=== PATIENT | female | born 1980 | race Caucasian/White ===

== ENCOUNTER → 2017-04-14 | Outpatient (CLI) | payer BC, SELFPAY | PROVIDERS: Family Provider Physician Assistant; Visit Provider Physician Assistant | DX: J40 Bronchitis, not specified as acute or chronic (principal) | CPT/HCPCS: 71020 ==

== ENCOUNTER → 2019-12-06 15:26 | Outpatient (CLI) | payer BC, SELFPAY ==
[2019-12-06 16:09] LABS: Basophils # 0.1 K/mm3 (0-0.2); Basophils % 0.6 % (0.1-2.0); Eosinophils # 0.2 K/mm3 (0.0-0.4); Eosinophils % 2.1 % (0.1-12.0); Hematocrit 41.7 % (37.0-47.0); Hemoglobin 14.3 g/dL (12.2-16.2); Lymphocytes # 3.3 K/mm3 (0.7-4.5); Lymphocytes % 32.9 % (10-50); Mean Corpuscular HGB Conc 34.2 g/dL (31.8-35.4); Mean Corpuscular Hemoglobin 29.6 pg (27.0-31.2); Mean Corpuscular Volume 86.5 fl (81-99); Mean Platelet Volume 6.7 fl (7.4-10.4); Monocytes # 0.6 K/mm3 (0.1-1.0); Monocytes % 5.7 % (1.7-9.3); Neutrophils # 5.8 K/mm3 (1.8-7.8); Neutrophils % 58.7 % (37.0-80.0); Platelet Count 366 K/mm3 (142-424); Red Blood Count 4.82 M/mm3 (4.20-5.40); Red Cell Distribution Width 13.6 % (11.5-17.5); White Blood Count 9.9 K/mm3 (4.8-10.8)
== END ==
PROVIDERS: PCP Family Medicine; Visit Provider Physician Assistant
DX: Z03.818 Encounter for observation for suspected exposure to other biological agents ruled out (principal)
CPT/HCPCS: 36415; 85025; U0003

== ENCOUNTER → 2020-02-11 10:28 | Outpatient (CLI) | payer BC, SELFPAY ==
[2020-02-11 13:39] LABS: Basophils # 0.1 K/mm3 (0-0.2); Basophils % 0.6 % (0.1-2.0); Eosinophils # 0.1 K/mm3 (0.0-0.4); Eosinophils % 1.2 % (0.1-12.0); Hematocrit 46.2 % (37.0-47.0); Hemoglobin 14.8 g/dL (12.2-16.2); Lymphocytes # 2.2 K/mm3 (0.7-4.5); Lymphocytes % 25.4 % (10-50); Mean Corpuscular HGB Conc 32.1 g/dL (31.8-35.4); Mean Corpuscular Hemoglobin 28.6 pg (27.0-31.2); Mean Corpuscular Volume 89.2 fl (81-99); Mean Platelet Volume 7.5 fl (7.4-10.4); Monocytes # 0.6 K/mm3 (0.1-1.0); Monocytes % 7.4 % (1.7-9.3); Neutrophils # 5.6 K/mm3 (1.8-7.8); Neutrophils % 65.5 % (37.0-80.0); Platelet Count 416 K/mm3 (142-424); Red Blood Count 5.18 M/mm3 (4.20-5.40); Red Cell Distribution Width 13.7 % (11.5-17.5); White Blood Count 8.5 K/mm3 (4.8-10.8)
== END ==
PROVIDERS: PCP Family Medicine; Visit Provider Family Medicine
DX: Z03.818 Encounter for observation for suspected exposure to other biological agents ruled out (principal)
CPT/HCPCS: 36415; 85025; U0003

== ENCOUNTER → 2020-07-16 10:36 | Outpatient (CLI) | payer BC, SELFPAY ==
--- NOTE | 2020-07-16 10:42 | MM_ITS ---
PROCEDURE: MM DIG MAMM BI DX W/CAD Digital Breast Tomosynthesis Included CLINICAL INDICATION: BREAST MASS There is a history of breast cancer patient's mother diagnosed at age 44. The patient complains of a thickness or fullness in upper outer quadrant left breast and axillary region COMPARISON: US US BREAST LT COMPLETE from 07/16/2020 TECHNIQUE: Standard CC and MLO images and 3D Tomosynthesis was obtained. R2 CAD reviewed. Additional spot compression views of the upper-outer quadrant left breast were obtained in the MLO and CC projections. FINDINGS: Mild diffuse fibroglandular densities are seen throughout both breasts. A marker was placed on the left breast at the site of the patient's complaint. Spot compression views were obtained and I see no mass or architectural distortion in the upper outer quadrant left breast. Aj images showed no evidence of architectural distortion or other abnormality. There is a small asymmetric nodular density upper central portion right breast with smooth borders and this is likely a small cyst or possibly fibroadenoma. However since this is a baseline study and in view of the strong family history of breast cancer recommend the patient return for spot compression views and ultrasound for additional evaluation. IMPRESSION: Fibrofatty parenchyma with no abnormality of the left breast at the site of the patient's complaint and with probable benign finding right breast BI-RAD Category: 0 Need Additional Imaging Evaluation FOLLOW-UP: IMM Immediate Follow-up Recommended (A letter has been sent to the patient regarding results of the study.) Dictated by: Dr. Kameron Conley MD 07/17/2020 10:32 Dr. Kameron Conley MD in [place] 07/17/2020 10:32
--- NOTE | 2020-07-16 10:44 | US_ITS ---
PROCEDURE: US BREAST LT COMPLETE CLINICAL INDICATION: BREAST MASS COMPARISON: No exams were available for comparison FINDINGS: Scanning of the left breast with particular attention to the upper-outer quadrant shows rather homogeneous and normal appearing echogenicity. There is no abnormal mass or evidence of architectural distortion. There does appear to be enlarged node in the axilla with a hypoechoic center, the node measuring 4.4 cm in greatest long axis diameter. This likely represents an inflammatory process within the node. A 2nd node in the axilla has a normal appearance. IMPRESSION: Probable enlarged somewhat inflamed node left axilla but there is no abnormality of the upper-outer quadrant of the left breast on ultrasound examination and the mammogram performed the same date was unremarkable as well. Dictated by: Dr. Kameron Conley MD 07/17/2020 10:51 Dr. Kameron Conley MD in [place] 07/17/2020 10:51
== END ==
PROVIDERS: PCP Physician Assistant; Visit Provider Physician Assistant
DX: N63.20 Unspecified lump in the left breast, unspecified quadrant (principal)
CPT/HCPCS: 76641; 77062; 77066; G0279

== ENCOUNTER → 2020-09-16 14:31 | Outpatient (CLI) | payer BC, SELFPAY ==
--- NOTE | 2020-09-16 | US_ITS ---
PROCEDURE: MM DIG MAMM DX UNILAT RT CAD Digital Breast Tomosynthesis Included CLINICAL INDICATION: ABN MAMM Follow-up abnormal mammogram COMPARISON: US US BREAST LT COMPLETE from 07/16/2020 MG MM DIG MAMM BI DX W/CAD from 07/16/2020 US US BREAST RT COMPLETE from 09/16/2020 US US BREAST LT COMPLETE from 09/16/2020 TECHNIQUE: Spot-compression views are obtained of the right breast along with right breast ultrasound. FINDINGS: There is a persistent asymmetric density in the upper inner aspect of the right breast at the 1 o'clock region. The margins are somewhat irregular. This measures approximately 12 x 5 mm on the mL view. No internal calcifications. Right breast ultrasound: A hypoechoic nodule well-circumscribed is present in the 1 o'clock region measuring 11 x 4 mm and likely corresponds to the mammographic abnormality. There is some minimal posterior acoustical shadowing and a thin linear hyperechoic area within the lesion. Lesion is wider than tall. This could possibly represent an intramammary lymph node however, the margins are irregular on the mammogram. Biopsy is therefore suggested. Left breast ultrasound: No abnormalities are evident within the breast. Enlarged lymph nodes are present in the axilla. The largest node measures approximately 4.3 cm longitudinal and 1.9 cm in thickness. Within the central aspect of this node there is an oval area of decreased echogenicity. This is consistent with enlarged lymph node which could be inflammatory in nature. The central area of decreased echogenicity does raise the question of a small central abscess. IMPRESSION: Mildly suspicious nodule of the right breast. Recommend ultrasound-guided mammotome biopsy. Left axillary adenopathy with no change in the largest node at 4.3 x 1.9 cm with decreased echogenicity centrally which could be due to small abscess formation or central necrosis. Has the patient had a Covid19 vaccine recently and if so? Which extremity was not given in. The adenopathy could be response to a Covid19 vaccination. Continued follow-up is suggested. If the adenopathy does not resolve then FNA could be performed with ultrasound guidance BI-RAD Category: 4 Suspicious Abnormality-Biopsy Considered right breast FOLLOW-UP: BIO Biopsy Recommended right breast (A letter has been sent to the patient regarding results of the study.) Dictated by: Wilton Plata MD 09/25/2020 10:31 Wilton Plata MD in [place] 09/25/2020 10:31
== END ==
LOC: RAD 14:33
PROVIDERS: PCP Physician Assistant; Visit Provider Physician Assistant
DX: R92.8 Other abnormal and inconclusive findings on diagnostic imaging of breast (principal)
CPT/HCPCS: 76641; 77061; 77065; G0279

== ENCOUNTER → 2020-10-15 09:24 | Outpatient (CLI) | payer BC, SELFPAY ==
--- NOTE | 2020-10-15 09:31 | US_ITS ---
PROCEDURE: US MAMMOTOME BX RT CLIP PLACEMENT MAMMOGRAM CLINICAL INDICATION: ABN MAMM Right breast mass COMPARISON: MG MM DIG MAMM BI DX W/CAD from 07/16/2020 US US BREAST RT COMPLETE from 09/16/2020 MG MM DIG MAMM DX UNILAT RT CAD from 09/16/2020 MG MM CLIP PLACEMENT RT from 10/15/2020 FINDINGS: Following obtaining informed consent and time-out procedure under aseptic conditions and local anesthesia with 1 percent buffered lidocaine, and deeper anesthesia with lidocaine mixed epinephrine, mammotome needle was inserted at the 1 o'clock position and multiple mammotome biopsies were obtained the previously described nodule. A sterile non ferromagnetic clip was placed. The patient tolerated the procedure well without evidence of immediate complications and left radiology suite in stable condition. Clip placement mammogram: Post biopsy changes are noted in the medial aspect of the right breast at the 1 o'clock position. Previously noted nodular lesion is less apparent with a clip present at this area. Pathology: Fibroadenoma, negative for atypia or malignancy. IMPRESSION: Successful sonographic guided biopsy 1 o'clock breast nodule showing benign findings. Recommend six-month mammographic follow-up per routine post biopsy protocol. Dictated by: Wilton Plata MD 10/26/2020 13:21 Wilton Plata MD in [place] 10/26/2020 13:21
--- NOTE | 2020-10-15 10:30 | US_ITS ---
PROCEDURE: US FNA LYMPH NODE CLINICAL INDICATION: ABN MAMM,LT BREAST LYMPH NODE Enlarged left axillary lymph node COMPARISON: US US BREAST LT COMPLETE from 09/16/2020 FINDINGS: Following obtaining informed consent and time-out procedure with ultrasound guidance and under aseptic conditions with local anesthesia with 1 percent buffered lidocaine, a 20 gauge needle was inserted into the enlarged left axillary lymph node x3. The patient tolerated the procedure well without evidence of immediate complication and left radiology suite in stable condition. Specimen was submitted in CytoLyt and RPMI Cytology: Negative for malignant cells IMPRESSION: Uneventful ultrasound-guided FNA left axillary lymph node showing benign findings Dictated by: Wilton Plata MD 10/26/2020 13:26 Wilton Plata MD in [place] 10/26/2020 13:26
[2020-10-15 13:17] LABS: Basophils # 0.1 K/mm3 (0-0.2); Basophils % 0.4 % (0.1-2.0); Eosinophils # 0.2 K/mm3 (0.0-0.4); Eosinophils % 1.4 % (0.1-12.0); Hematocrit 41.9 % (37.0-47.0); Hemoglobin 14.2 g/dL (12.2-16.2); Lymphocytes # 2.7 K/mm3 (0.7-4.5); Lymphocytes % 23.4 % (10-50); Mean Corpuscular Hemoglobin 29.1 pg (27.0-31.2); Mean Corpuscular Volume 85.5 fl (81-99); Monocytes # 0.7 K/mm3 (0.1-1.0); Monocytes % 5.9 % (1.7-9.3); Neutrophils % 68.8 % (37.0-80.0); Platelet Count 447 K/mm3 (142-424); Red Cell Distribution Width 13.4 % (11.5-17.5); White Blood Count 11.7 K/mm3 (4.8-10.8)
[2020-10-15 13:36] LABS: Alanine Aminotransferase 36 U/L (12-78); Albumin Level 4.3 g/dl (3.5-5.0); Albumin/Globulin Ratio 1.5 (1.1-1.8); Alkaline Phosphatase 53 U/L (38-126); Anion Gap 13.3 mEq/L (5-15); Aspartate Amino Transferase 25 U/L (14-36); Bilirubin,Total 0.4 mg/dl (0.2-1.3); Blood Urea Nitrogen 14 mg/dl (7-17); Calcium 8.8 mg/dl (8.4-10.2); Carbon Dioxide 27 mmol/L (22.0-30.0); Chloride 100 mmol/L (98-107); Chol/HDL Ratio 4.4 (1-3.5); Cholesterol 232 mg/dl (140-200); Estimated Glomerular Filt Rate 137 ml/min (>60); GFR (African American) 165 ML/MIN (>60); Globulin 2.9 g/dL (1.3-3.2); Glucose 90 mg/dl (74-100); HDL Cholesterol 53 mg/dl (40-60); Potassium 4.3 mmoL/L (3.5-5.1); Sodium 136 mmol/L (136-145); Total Protein,Serum 7.2 g/dl (6.3-8.2); Triglycerides 71 mg/dl (30-150); VLDL Cholesterol 14 mg/dL (0-40)
[2020-10-15 13:47] LABS: Direct LDL Cholesterol 163.34 mg/dL (100-129)
[2020-10-15 13:53] LABS: 25-OH Vitamin D, Total 19.9 ng/mL (30-100)
[2020-10-15 14:08] LABS: Thyroid Stimulating Hormone 1.15 uIU/mL (0.465-4.68)
[2020-10-15 14:26] LABS: Vitamin B12 553 pg/mL (239-931)
== END ==
LOC: RAD 09:25
PROVIDERS: PCP Physician Assistant; Visit Provider Family Medicine
DX: R92.8 Other abnormal and inconclusive findings on diagnostic imaging of breast (principal); D48.61 Neoplasm of uncertain behavior of right breast; R53.83 Other fatigue; Z13.220 Encounter for screening for lipoid disorders; E55.9 Vitamin D deficiency, unspecified
CPT/HCPCS: 10005; 36415; 77065; 80053; 80061; 82306; 82607; 84439; 84443; 85025; C2618

== ENCOUNTER → 2021-01-25 12:55 | Outpatient (CLI) | payer BC, SELFPAY ==
[2021-01-25 13:52] LABS: Adenovirus,PCR Not Detected (NotDetected); Bordetella Pertussis Not Detected (NotDetected); Chlamydophila Pneumoniae, PCR Not Detected (NotDetected); Coronavirus 19, PCR Not Detected (NotDetected); Coronavirus 229E Not Detected (NotDetected); Coronavirus NL63 Not Detected (NotDetected); Coronavirus OC43 Not Detected (NotDetected); Coronovirus HKU1,PCR Not Detected (NotDetected); Human Metapneumovirus Not Detected (NotDetected); Influenza A, PCR Not Detected (NotDetected); Influenza AH1, 2009 Not Detected (NotDetected); Influenza AH1, PCR Not Detected (NotDetected); Influenza AH3,PCR Not Detected (NotDetected); Influenza B, PCR Not Detected (NotDetected); Mycoplasma Pneumoniae, PCR Not Detected (NotDetected); Parainfluenza 1, PCR Not Detected (NotDetected); Parainfluenza 2, PCR Not Detected (NotDetected); Parainfluenza 3, PCR Not Detected (NotDetected); Parainfluenza 4, PCR Not Detected (NotDetected); Respiratory Syncytial Virus Not Detected (NotDetected); Rhinovirus/Enterovirus Not Detected (NotDetected)
[2021-01-25 14:18] LABS: Basophils # 0.1 K/mm3 (0-0.2); Basophils % 0.9 % (0.1-2.0); Eosinophils # 0.1 K/mm3 (0.0-0.4); Eosinophils % 1.3 % (0.1-12.0); Hemoglobin 14.1 g/dL (12.2-16.2); Lymphocytes # 2.5 K/mm3 (0.7-4.5); Lymphocytes % 27.7 % (10-50); Mean Corpuscular HGB Conc 32.8 g/dL (31.8-35.4); Mean Corpuscular Hemoglobin 28.8 pg (27.0-31.2); Mean Corpuscular Volume 87.9 fl (81-99); Mean Platelet Volume 7.9 fl (7.4-10.4); Monocytes # 0.6 K/mm3 (0.1-1.0); Monocytes % 6.3 % (1.7-9.3); Neutrophils # 5.8 K/mm3 (1.8-7.8); Neutrophils % 63.7 % (37.0-80.0); Platelet Count 476 K/mm3 (142-424); Red Cell Distribution Width 13.7 % (11.5-17.5)
[2021-01-25 15:02] LABS: Strep Scrn Group A (Rapid) Negative (Negative)
== END ==
PROVIDERS: PCP Family Medicine; Visit Provider Nurse Practitioner Family
DX: Z20.822 Contact with and (suspected) exposure to COVID-19 (principal)
CPT/HCPCS: 36415; 85025; 87430; 87581; 87632; 87798; C9803; U0003; U0005

== ENCOUNTER → 2021-03-04 14:52 | Outpatient (CLI) | payer BC, SELFPAY ==
[2021-03-04 15:32] LABS: Adenovirus,PCR Not Detected (NotDetected); Bordetella Pertussis Not Detected (NotDetected); Chlamydophila Pneumoniae, PCR Not Detected (NotDetected); Coronavirus 19, PCR Not Detected (NotDetected); Coronavirus 229E Not Detected (NotDetected); Coronavirus NL63 Not Detected (NotDetected); Coronavirus OC43 Not Detected (NotDetected); Coronovirus HKU1,PCR Not Detected (NotDetected); Human Metapneumovirus Not Detected (NotDetected); Influenza A, PCR Not Detected (NotDetected); Influenza AH1, 2009 Not Detected (NotDetected); Influenza AH1, PCR Not Detected (NotDetected); Influenza AH3,PCR Not Detected (NotDetected); Influenza B, PCR Not Detected (NotDetected); Mycoplasma Pneumoniae, PCR Not Detected (NotDetected); Parainfluenza 1, PCR Not Detected (NotDetected); Parainfluenza 2, PCR Not Detected (NotDetected); Parainfluenza 3, PCR Not Detected (NotDetected); Parainfluenza 4, PCR Not Detected (NotDetected)
[2021-03-04 15:48] LABS: Basophils # 0.1 K/mm3 (0-0.2); Basophils % 1.1 % (0.1-2.0); Eosinophils # 0.1 K/mm3 (0.0-0.4); Eosinophils % 1.3 % (0.1-12.0); Hematocrit 41.8 % (37.0-47.0); Hemoglobin 13.8 g/dL (12.2-16.2); Lymphocytes # 2.5 K/mm3 (0.7-4.5); Lymphocytes % 39.9 % (10-50); Mean Corpuscular HGB Conc 32.9 g/dL (31.8-35.4); Mean Corpuscular Hemoglobin 28.7 pg (27.0-31.2); Mean Platelet Volume 7.5 fl (7.4-10.4); Monocytes # 0.6 K/mm3 (0.1-1.0); Neutrophils % 48.8 % (37.0-80.0); Platelet Count 413 K/mm3 (142-424); Red Cell Distribution Width 13.3 % (11.5-17.5); White Blood Count 6.2 K/mm3 (4.8-10.8)
[2021-03-04 18:26] LABS: Respiratory Syncytial Virus Detected (NotDetected); Rhinovirus/Enterovirus Detected (NotDetected)
== END ==
PROVIDERS: PCP Family Medicine; Visit Provider Physician Assistant
DX: Z20.822 Contact with and (suspected) exposure to COVID-19 (principal); B97.4 Respiratory syncytial virus as the cause of diseases classified elsewhere; B34.1 Enterovirus infection, unspecified
CPT/HCPCS: 36415; 85025; 87581; 87632; 87798; C9803; U0003; U0005

== ENCOUNTER → 2021-08-20 10:16 | Outpatient (CLI) | payer BC, SELFPAY ==
--- NOTE | 2021-08-20 10:25 | XR_ITS ---
FINAL REPORT CLINICAL HISTORY: COVID TESTING. cough, sob x6days. image did not flip correctly. if need to resend image let us know. COMPARISON: April 14, 2017 FINDINGS: SINGLE VIEW CHEST The heart is normal in size. The mediastinum is unremarkable. The lungs are clear. There is no pneumothorax. IMPRESSION: No acute process. Reviewed, Interpreted and Dictated by Neo Blanco MD Transcribed by Neetu Zamarripa Authenticated by Neo Blanco MD on 08/20/2021 11:33:00 AM [facility]
[2021-08-20 11:29] LABS: Basophils # 0.2 K/mm3 (0-0.2); Basophils % 1.3 % (0.1-2.0); Eosinophils % 0.1 % (0.1-12.0); Hematocrit 43.2 % (37.0-47.0); Hemoglobin 14.4 g/dL (12.2-16.2); Lymphocytes # 2.2 K/mm3 (0.7-4.5); Lymphocytes % 14.2 % (10-50); Mean Corpuscular HGB Conc 33.2 g/dL (31.8-35.4); Mean Corpuscular Hemoglobin 29.2 pg (27.0-31.2); Mean Platelet Volume 7.3 fl (7.4-10.4); Monocytes # 1.2 K/mm3 (0.1-1.0); Monocytes % 7.6 % (1.7-9.3); Neutrophils # 11.9 K/mm3 (1.8-7.8); Neutrophils % 76.8 % (37.0-80.0); Platelet Count 508 K/mm3 (142-424); Red Blood Count 4.91 M/mm3 (4.20-5.40); Red Cell Distribution Width 13.8 % (11.5-17.5); White Blood Count 15.5 K/mm3 (4.8-10.8)
[2021-08-20 12:21] LABS: MANUAL DIFFERENTIAL MANUAL DIFFERENTIAL (MANUAL DIFF)
[2021-08-20 16:18] LABS: Lymphocytes % 24 % (10-50); Monocytes % 5 % (2-9); Neutrophils % 71 % (42-76); Platelet Estimate Slight Increase; RBC Morphology Normal; Total Cells Counted 100
== END ==
PROVIDERS: PCP Family Medicine; Visit Provider Physician Assistant
DX: Z20.822 Contact with and (suspected) exposure to COVID-19 (principal)
CPT/HCPCS: 36415; 71045; 85007; 85025; 85378; 87275; 87276; C9803; U0003; U0005

== ENCOUNTER → 2021-08-21 09:53 | Outpatient (CLI) | payer BC, SELFPAY ==
--- NOTE | 2021-08-21 09:57 | XR_ITS ---
PROCEDURE INFORMATION: Exam: XR Soft Tissue Neck Exam date and time: 08/21/2021 9:58 AM Age: 41 years old Clinical indication: Dysphagia / difficulty swallowing and other: Difficult clearing airway; Additional info: Tracheitis- status post covid but still feels difficulty clearing her airway- check for stenosis TECHNIQUE: Imaging protocol: XR of the soft tissues of the neck. COMPARISON: CR XR CHEST AP 08/20/2021 10:40 AM FINDINGS: Airway: Normal. No abnormal narrowing. Soft tissues: Normal. Normal epiglottis. Bones/joints: Unremarkable. IMPRESSION: No acute findings. Recommend CT soft tissue neck with IV contrast if clinically indicated
== END ==
LOC: RAD 09:54
PROVIDERS: PCP Family Medicine; Visit Provider Family Medicine
DX: J04.10 Acute tracheitis without obstruction (principal)
CPT/HCPCS: 70360

== ENCOUNTER → 2021-08-23 10:35 | Outpatient (CLI) | payer BC, SELFPAY ==
--- NOTE | 2021-08-23 10:46 | CT_ITS ---
FINAL REPORT TECHNIQUE: Thin section axial CT images were obtained through the neck after intravenous contrast administration. Coronal and sagittal reformats were also obtained. This study was performed with techniques to keep radiation doses as low as reasonably achievable (ALARA). Individualized dose reduction techniques using automated exposure control or adjustment of mA and/or kV according to the patient''s size were employed. CLINICAL HISTORY: TRACHEITIS, soa FINDINGS: The nasopharynx and oropharynx are unremarkable. There is soft tissue fullness of the left piriform sinus of uncertain significance. There is no mass or adenopathy. The thyroid gland is unremarkable. There is an abnormal appearance to the right true vocal cord worrisome for right true vocal cord paralysis. The visualized sinuses are clear. There is no acute osseous abnormality. IMPRESSION: Soft tissue fullness of the left piriform sinus may represent inflammatory change. Neoplastic involvement is felt less likely but not excluded. Consider laryngoscopy. Abnormal appearance of the right true vocal cord worrisome for right true vocal cord paralysis. Reviewed, Interpreted and Dictated by Kumar Carpio III, MD Transcribed by Adama Zhong Authenticated by Kumar Carpio III, MD on 08/23/2021 11:48:04 AM [facility]
--- NOTE | 2021-08-23 10:46 | CT_ITS ---
FINAL REPORT TECHNIQUE: Then section axial CT images of the chest were obtained with contrast. Three-D reformatted images were also obtained.This study was performed with techniques to keep radiation doses as low as reasonably achievable (ALARA). Individualized dose reduction techniques using automated exposure control or adjustment of mA and/or kV according to the patient''s size were employed. CLINICAL HISTORY: DISCOMFORT OF CHEST,DYSPNEA FINDINGS: There is no evidence of pulmonary embolism. There is no evidence of thoracic aortic aneurysm or dissection. There is no evidence of mediastinal or hilar mass or adenopathy. There is mild bilateral ground-glass opacity of uncertain etiology. No localized inflammatory process is seen within the lungs. Limited images of the upper abdomen are unremarkable. IMPRESSION: 1. No evidence of pulmonary embolism. 2. Mild bilateral ground-glass opacity of uncertain etiology could represent edema, alveolitis, or mild pneumonia. Reviewed, Interpreted and Dictated by Kumar Carpio III, MD Transcribed by Adama Zhong Authenticated by Kumar Carpio III, MD on 08/23/2021 11:48:06 AM [facility]
== END ==
LOC: RAD 10:40
PROVIDERS: PCP Family Medicine; Visit Provider Family Medicine
DX: R06.09 Other forms of dyspnea (principal); R07.89 Other chest pain; J04.10 Acute tracheitis without obstruction
CPT/HCPCS: 70491; 71275; Q9967

== ENCOUNTER → 2021-09-13 08:56 | Outpatient (CLI) | payer BC, SELFPAY ==
--- NOTE | 2021-09-13 08:56 | MR_ITS ---
FINAL REPORT TECHNIQUE: Multiplanar and multisequence imaging of the brain was obtained without contrast. CLINICAL HISTORY: vocal cord paralysis [id number]. headache. FINDINGS: The gyri and sulci are within normal limits for age. There is no mass effect or midline shift. The ventricles are symmetric in size and configuration without hydrocephalus. There are multiple, subcortical predominant, white matter changes, worse in the frontal lobes. The cerebellum and brainstem have a normal appearance. There are no areas of restricted diffusion on diffusion weighted images to suggest acute infarct. Soft tissues are without acute abnormality. IMPRESSION: Subcortical white matter changes greater than expected for patient's age may represent demyelinating disease or vasculitis. Chronic small vessel ischemia is less likely. Reviewed, Interpreted and Dictated by Ashley Roberts MD Transcribed by Earline Hameed Authenticated by Ashley Roberts MD on 09/13/2021 11:09:32 AM [facility]
== END ==
LOC: RAD 08:56
PROVIDERS: PCP Family Medicine; Visit Provider Specialist
DX: J38.00 Paralysis of vocal cords and larynx, unspecified (principal); B34.9 Viral infection, unspecified; R53.83 Other fatigue
CPT/HCPCS: 70551

== ENCOUNTER → 2021-09-22 11:35 | Outpatient (CLI) | payer BC, SELFPAY ==
[2021-09-22 11:46] LABS: Adenovirus,PCR Not Detected (NotDetected); Bordetella Pertussis Not Detected (NotDetected); Chlamydophila Pneumoniae, PCR Not Detected (NotDetected); Coronavirus 229E Not Detected (NotDetected); Coronavirus NL63 Not Detected (NotDetected); Coronavirus OC43 Not Detected (NotDetected); Coronovirus HKU1,PCR Not Detected (NotDetected); Human Metapneumovirus Not Detected (NotDetected); Influenza A, PCR Not Detected (NotDetected); Influenza AH1, 2009 Not Detected (NotDetected); Influenza AH1, PCR Not Detected (NotDetected); Influenza AH3,PCR Not Detected (NotDetected); Influenza B, PCR Not Detected (NotDetected); Mycoplasma Pneumoniae, PCR Not Detected (NotDetected); Parainfluenza 1, PCR Not Detected (NotDetected); Parainfluenza 2, PCR Not Detected (NotDetected); Parainfluenza 4, PCR Not Detected (NotDetected); Respiratory Syncytial Virus Not Detected (NotDetected); Rhinovirus/Enterovirus Not Detected (NotDetected)
--- NOTE | 2021-09-22 11:52 | XR_ITS ---
FINAL REPORT CLINICAL HISTORY: COVID OUT PATIENT, cough, soa COMPARISON: 08/20/2021 FINDINGS: SINGLE-VIEW CHEST The heart size is normal. The mediastinum is normal. There is new right base opacity consistent with pneumonia. There is no pneumothorax. IMPRESSION: No acute cardiopulmonary process. Reviewed, Interpreted and Dictated by Kumar Carpio III, MD Transcribed by Juliette Keller [facility]
[2021-09-23 05:43] LABS: Parainfluenza 3, PCR Detected (NotDetected)
== END ==
PROVIDERS: PCP Physician Assistant; Visit Provider Physician Assistant
DX: Z20.822 Contact with and (suspected) exposure to COVID-19 (principal); B34.8 Other viral infections of unspecified site; J18.9 Pneumonia, unspecified organism
CPT/HCPCS: 71045; 87486; 87581; 87632; 87798; C9803; U0003; U0005

== ENCOUNTER → 2021-10-08 11:17 | Outpatient (CLI) | payer BC, SELFPAY ==
--- NOTE | 2021-10-08 11:21 | XR_ITS ---
FINAL REPORT CLINICAL HISTORY: PNEUMONIA OF RT LUNG DUE TO INFECTIOUS ORGANISM, UPSECIFIED, non smoker COMPARISON: September 22, 2021 FINDINGS: Two views of the chest were obtained. The heart size and pulmonary vascularity are within normal limits. The mediastinum is normal. There arm proved bibasilar opacities. There is no pneumothorax. The bony thorax is intact. IMPRESSION: Improved bibasilar opacities. Reviewed, Interpreted and Dictated by Kumar Carpio III, MD Transcribed by Adama Zhong Authenticated and [facility]
== END ==
LOC: RAD 11:19
PROVIDERS: PCP Family Medicine; Visit Provider Physician Assistant
DX: J18.9 Pneumonia, unspecified organism (principal)
CPT/HCPCS: 71046

== ENCOUNTER → 2021-10-11 12:29 | Outpatient (CLI) | payer BC, SELFPAY | LOC: SL 12:30 | PROVIDERS: PCP Family Medicine; Visit Provider Specialist | DX: G47.30 Sleep apnea, unspecified (principal); R53.83 Other fatigue; R06.83 Snoring; E66.9 Obesity, unspecified; Z68.38 Body mass index [BMI] 38.0-38.9, adult | CPT/HCPCS: G0399 ==

== ENCOUNTER → 2021-10-18 09:41 | Outpatient (CLI) | payer BC, SELFPAY ==
--- NOTE | 2021-10-18 09:43 | MM_ITS ---
PROCEDURE INFORMATION: Exam: MG Bilateral Screening 3D Mammography Exam date and time: 10/18/2021 10:04 AM Age: 41 years old Clinical indication: Screening examination. History of benign biopsy in the right breast at 1 o'clock demonstrating fibroadenoma. Her mother had breast cancer at age 44. TECHNIQUE: Imaging protocol: Bilateral Screening tomosynthesis and 2D mammography including computer-aided detection (CAD) when performed. COMPARISON: 1. MG MM CLIP PLACEMENT RT 10/15/2020 11:54 AM 2. MG MM DIG MAMM DX UNILAT RT CAD 09/16/2020 2:49 PM 3. MG MM DIG MAMM BI DX W/CAD 07/16/2020 10:42 AM 4. US BREAST RT COMPLETE 09/16/2020 3:57 PM FINDINGS: MAMMOGRAPHY: Breast composition: There are scattered areas of fibroglandular density. Mass: No suspicious mass. Architectural distortion: None. Calcifications: No suspicious calcifications. Asymmetric density: None. Skin thickening: None. Axillary adenopathy: None. Other findings: Right biopsy clip. IMPRESSION: No mammographic evidence of malignancy. Annual screening is recommended unless otherwise clinically indicated. ASSESSMENT: BI-RADS Category 2: Benign
== END ==
PROVIDERS: PCP Family Medicine; Visit Provider Physician Assistant
DX: Z12.31 Encounter for screening mammogram for malignant neoplasm of breast (principal)
CPT/HCPCS: 77063; 77067

== ENCOUNTER → 2022-01-10 13:28 | Outpatient (CLI) | payer BC, SELFPAY ==
[2022-01-10 15:41] LABS: Adenovirus,PCR Not Detected (NotDetected); Bordetella Pertussis Not Detected (NotDetected); Chlamydophila Pneumoniae, PCR Not Detected (NotDetected); Coronavirus 229E Not Detected (NotDetected); Coronavirus NL63 Not Detected (NotDetected); Coronavirus OC43 Not Detected (NotDetected); Coronovirus HKU1,PCR Not Detected (NotDetected); Human Metapneumovirus Not Detected (NotDetected); Influenza A, PCR Not Detected (NotDetected); Influenza AH1, 2009 Not Detected (NotDetected); Influenza AH1, PCR Not Detected (NotDetected); Influenza AH3,PCR Not Detected (NotDetected); Influenza B, PCR Not Detected (NotDetected); Mycoplasma Pneumoniae, PCR Not Detected (NotDetected); Parainfluenza 1, PCR Not Detected (NotDetected); Parainfluenza 2, PCR Not Detected (NotDetected); Parainfluenza 3, PCR Not Detected (NotDetected); Parainfluenza 4, PCR Not Detected (NotDetected); Respiratory Syncytial Virus Not Detected (NotDetected); Rhinovirus/Enterovirus Not Detected (NotDetected)
[2022-01-10 16:17] LABS: Basophils # 0.1 K/mm3 (0-0.2); Eosinophils # 0.1 K/mm3 (0.0-0.4); Eosinophils % 0.9 % (0.1-12.0); Hematocrit 39.7 % (37.0-47.0); Hemoglobin 13.3 g/dL (12.2-16.2); Lymphocytes # 0.9 K/mm3 (0.7-4.5); Lymphocytes % 11.8 % (10-50); Mean Corpuscular HGB Conc 33.4 g/dL (31.8-35.4); Mean Corpuscular Hemoglobin 29.4 pg (27.0-31.2); Mean Corpuscular Volume 87.8 fl (81-99); Mean Platelet Volume 7.5 fl (7.4-10.4); Monocytes # 0.8 K/mm3 (0.1-1.0); Monocytes % 10.5 % (1.7-9.3); Neutrophils # 5.6 K/mm3 (1.8-7.8); Neutrophils % 75.7 % (37.0-80.0); Platelet Count 371 K/mm3 (142-424); Red Blood Count 4.52 M/mm3 (4.20-5.40); Red Cell Distribution Width 13.8 % (11.5-17.5); White Blood Count 7.4 K/mm3 (4.8-10.8)
[2022-01-10 16:23] LABS: Strep Scrn Group A (Rapid) Negative (Negative)
[2022-01-10 21:16] LABS: Coronavirus 19, PCR Detected (NotDetected)
== END ==
PROVIDERS: PCP Family Medicine; Visit Provider Nurse Practitioner Family
DX: U07.1 COVID-19 (principal)
CPT/HCPCS: 36415; 85025; 87430; 87581; 87632; 87798; C9803; U0003; U0005

== ENCOUNTER → 2022-03-24 12:35 | Outpatient (CLI) | payer BC, SELFPAY ==
[2022-03-24 13:02] LABS: Coronavirus 19, PCR Not Detected (NotDetected); Influenza A, PCR Not Detected (NotDetected); Influenza B, PCR Not Detected (NotDetected)
[2022-03-24 13:11] LABS: Basophils % 0.6 % (0.1-2.0); Eosinophils % 0.4 % (0.1-12.0); Hematocrit 43.4 % (37.0-47.0); Hemoglobin 13.9 g/dL (12.2-16.2); Lymphocytes # 0.6 K/mm3 (0.7-4.5); Lymphocytes % 13.8 % (10-50); Mean Corpuscular HGB Conc 32.1 g/dL (31.8-35.4); Mean Corpuscular Hemoglobin 28.6 pg (27.0-31.2); Mean Corpuscular Volume 89.3 fl (81-99); Mean Platelet Volume 7.6 fl (7.4-10.4); Monocytes # 0.2 K/mm3 (0.1-1.0); Monocytes % 5.4 % (1.7-9.3); Neutrophils # 3.5 K/mm3 (1.8-7.8); Neutrophils % 79.8 % (37.0-80.0); Platelet Count 298 K/mm3 (142-424); Red Blood Count 4.86 M/mm3 (4.20-5.40); Red Cell Distribution Width 14.1 % (11.5-17.5); White Blood Count 4.3 K/mm3 (4.8-10.8)
[2022-03-24 13:23] LABS: Strep Scrn Group A (Rapid) Negative (Negative)
== END ==
PROVIDERS: PCP Family Medicine; Visit Provider Physician Assistant
DX: Z20.822 Contact with and (suspected) exposure to COVID-19 (principal); J02.9 Acute pharyngitis, unspecified
CPT/HCPCS: 36415; 85025; 87430; C9803; U0003; U0005

== ENCOUNTER 2023-06-01 12:15 | Outpatient (CLI) | payer BC, SELFPAY ==
[2023-06-01 12:21] LABS: Adenovirus,PCR Not Detected (NotDetected); Coronavirus 19, PCR Not Detected (NotDetected); Coronavirus 229E Not Detected (NotDetected); Coronavirus NL63 Not Detected (NotDetected); Coronavirus OC43 Not Detected (NotDetected); Coronovirus HKU1,PCR Not Detected (NotDetected); Human Metapneumovirus Not Detected (NotDetected); Influenza A, PCR Not Detected (NotDetected); Influenza AH1, 2009 Not Detected (NotDetected); Influenza AH1, PCR Not Detected (NotDetected); Influenza AH3,PCR Not Detected (NotDetected); Influenza B, PCR Not Detected (NotDetected); Parainfluenza 1, PCR Not Detected (NotDetected); Parainfluenza 2, PCR Not Detected (NotDetected); Parainfluenza 3, PCR Not Detected (NotDetected); Parainfluenza 4, PCR Not Detected (NotDetected); Respiratory Syncytial Virus Not Detected (NotDetected); Rhinovirus/Enterovirus Not Detected (NotDetected)
== END 2023-06-01 23:59 ==
LOC: LAB 12:16
PROVIDERS: PCP Family Medicine; Visit Provider Physician Assistant
DX: J06.9 Acute upper respiratory infection, unspecified (principal)
CPT/HCPCS: 87632; 87635

== ENCOUNTER 2023-09-21 09:36 | Outpatient (CLI) | payer BC, SELFPAY ==
[2023-09-21 09:55] LABS: Basophils # 0.1 K/mm3 (0-0.2); Basophils % 0.8 % (0.1-2.0); Eosinophils # 0.1 K/mm3 (0.0-0.4); Eosinophils % 1.5 % (0.1-12.0); Hematocrit 42.7 % (37.0-47.0); Hemoglobin 13.8 g/dL (12.2-16.2); Lymphocytes # 1.8 K/mm3 (0.7-4.5); Lymphocytes % 26.2 % (10-50); Mean Corpuscular HGB Conc 32.4 g/dL (31.8-35.4); Mean Corpuscular Hemoglobin 29.1 pg (27.0-31.2); Mean Corpuscular Volume 89.9 fl (81-99); Mean Platelet Volume 7.2 fl (7.4-10.4); Monocytes # 0.3 K/mm3 (0.1-1.0); Monocytes % 4.9 % (1.7-9.3); Neutrophils # 4.5 K/mm3 (1.8-7.8); Neutrophils % 66.5 % (37.0-80.0); Platelet Count 324 K/mm3 (142-424); Red Blood Count 4.75 M/mm3 (4.20-5.40); Red Cell Distribution Width 14.3 % (11.5-17.5); White Blood Count 6.8 K/mm3 (4.8-10.8)
[2023-09-21 10:37] LABS: Hemoglobin A1C 5.5 % (4.0-6.0)
[2023-09-21 10:44] LABS: Alanine Aminotransferase 32 U/L (12-78); Albumin Level 4.1 g/dl (3.5-5.0); Albumin/Globulin Ratio 1.5 (1.1-1.8); Alkaline Phosphatase 63 U/L (38-126); Anion Gap 12.9 mEq/L (5-15); Aspartate Amino Transferase 30 U/L (14-36); Bilirubin,Total 0.3 mg/dl (0.2-1.3); Blood Urea Nitrogen 11 mg/dl (7-17); Calcium 8.9 mg/dl (8.4-10.2); Carbon Dioxide 28 mmol/L (22.0-30.0); Chloride 101 mmol/L (98-107); Chol/HDL Ratio 3.9 (1-3.5); Cholesterol 233 mg/dl (140-200); Estimated Glomerular Filt Rate 135 ml/min (>60); GFR (African American) 163 ML/MIN (>60); Globulin 2.7 g/dL (1.3-3.2); Glucose 133 mg/dl (74-100); HDL Cholesterol 60 mg/dl (40-60); Potassium 3.9 mmoL/L (3.5-5.1); Sodium 138 mmol/L (136-145); Total Protein,Serum 6.8 g/dl (6.3-8.2); Triglycerides 114 mg/dl (30-150); VLDL Cholesterol 23 mg/dL (0-40)
[2023-09-21 11:01] LABS: Free T4 (Free Thyroxine) 0.84 ng/dl (0.78-2.19)
[2023-09-21 11:02] LABS: 25-OH Vitamin D, Total 30.6 ng/mL (30-100)
[2023-09-21 11:14] LABS: Thyroid Stimulating Hormone 1.01 uIU/mL (0.465-4.68)
[2023-09-21 11:33] LABS: Vitamin B12 394 pg/mL (239-931)
== END 2023-09-21 23:59 | disposition home or self-care (01) ==
LOC: LAB 09:37
PROVIDERS: PCP Family Medicine; Visit Provider Physician Assistant
DX: E55.9 Vitamin D deficiency, unspecified (principal); R63.5 Abnormal weight gain; R73.01 Impaired fasting glucose; R53.83 Other fatigue; Z13.220 Encounter for screening for lipoid disorders; Z68.37 Body mass index [BMI] 37.0-37.9, adult
CPT/HCPCS: 36415; 80053; 80061; 82306; 82607; 83036; 84439; 84443; 85025

== ENCOUNTER 2025-02-19 11:06 | Outpatient (CLI) | payer BC, SELFPAY ==
--- OUTSIDE RECORDS SUMMARY | 2023-09-20 07:15 | XMS_ITS ---
[facility] Organization [facility] [address] [place] [id number] Care Team Providers Care Landscaping Supervisor Name Role Phone Zina Lagos Primary Care Provider BlakeFabian bocanegraa Unavailable [phone] Allergies No Known Allergies Results Component Value Reference Range Notes H-TSH Reviewed date:09/21/2023 05:36:02 PM Interpretation: Performing Lab: Notes/Report: TSH 1.01 0.465-4.68 uIU/mL H-CBC Reviewed date:09/21/2023 05:36:02 PM Interpretation: Performing Lab: Notes/Report: WBC 6.8 4.8-10.8 K/mm3 RBC 4.75 4.20-5.40 M/mm3 HGB 13.8 12.2-16.2 g/dL HCT 42.7 37.0-47.0 % MCV 89.9 81-99 fl MCH 29.1 27.0-31.2 pg MCHC 32.4 31.8-35.4 g/dL RDW 14.3 11.5-17.5 % PLT 324 142-424 K/mm3 MPV 7.2 7.4-10.4 fl NE% 66.5 37.0-80.0 % LY% 26.2 10-50 % MO% 4.9 1.7-9.3 % EO% 1.5 0.1-12.0 % BA% 0.8 0.1-2.0 % NE# 4.5 1.8-7.8 K/mm3 LY# 1.8 0.7-4.5 K/mm3 MO# 0.3 0.1-1.0 K/mm3 EO# 0.1 0.0-0.4 K/mm3 BA# 0.1 0-0.2 K/mm3 H-VITAMIN D Reviewed date:09/21/2023 05:36:02 PM Interpretation: Performing Lab: Notes/Report: TVITD 30.6 30-100 ng/mL Deficient <20 ng/mL Insufficient 20-30 ng/mL Sufficient 30-100 ng/mL Potential Toxicity >100 ng/mL H-Lipid Panel Reviewed date:09/21/2023 05:36:02 PM Interpretation: Performing Lab: Notes/Report: Patient Fasting? Y TRIG 114 30-150 mg/dl CHOL 233 140-200 mg/dl DLDL 154.40 100-129 mg/dL VLDL 23 0-40 mg/dL HDL 60 40-60 mg/dl CHLHDL 3.9 1-3.5 H-CMP Reviewed date:09/21/2023 05:36:02 PM Interpretation: Performing Lab: Notes/Report: NA 138 136-145 mmol/L K 3.9 3.5-5.1 mmoL/L CL 101 98-107 mmol/L CO2 28 22.0-30.0 mmol/L GAP 12.9 5-15 mEq/L BUN 11 7-17 mg/dl CREATT 0.50 0.52-1.04 mg/dl GFRAA 163 >60 ML/MIN EGFR 135 >60 ml/min GLU 133 74-100 mg/dl CA 8.9 8.4-10.2 mg/dl BILIT 0.3 0.2-1.3 mg/dl AST 30 14-36 U/L ALT 32 12-78 U/L TP 6.8 6.3-8.2 g/dl ALB 4.1 3.5-5.0 g/dl GLOB 2.7 1.3-3.2 g/dL AGRATIO 1.5 1.1-1.8 ALP 63 38-126 U/L H-Glycohemoglobin A1C Reviewed date:09/21/2023 05:36:02 PM Interpretation: Performing Lab: Notes/Report: HGBA1C 5.5 4.0-6.0 % < 6% Non-Diabetic Level < 7% Controlled Diabetic Level > 8% Poorly Controlled Diabetic Level H-VITAMIN B12 Reviewed date:09/21/2023 05:36:02 PM Interpretation: Performing Lab: Notes/Report: VITB12 394 239-931 pg/mL H-T4 free Reviewed date:09/21/2023 05:36:02 PM Interpretation: Performing Lab: Notes/Report: T4F 0.84 0.78-2.19 ng/dl Mammogram Reviewed date:09/27/2023 08:49:06 AM Interpretation:see duplicate order Performing Lab: Notes/Report: see duplicate order Reason For Referral Diagnosis 1 Weight gain (R63.5) Referral Organization [facility] Referring Provider First Name Evelyn Referring Provider Last Name Adelfo Referring Provider Speciality Physician Polytechnic Teacher Referred Provider landscaping supervisor, , Referred Provider Specialty Dietary General Notes Evelyn Emanuel 09/19 11:49:29 AM > Pt would like to see a landscaping supervisor at [facility], Maddy Martinez 09/20/2023 1:27:45 PM > [facility] 09/26/2023 at 01:00pm, Maddy Martinez 09/21/2023 9:36:04 AM > pt informed; referral sent Referral Priority Routine REASON FOR VISIT f/u on weight loss Medications Medication SIG (Take, Route, Frequency, Duration) Notes Start Date End Date Status Montelukast Sodium 10 MG TAKE 1 TABLET B Y MOUTH EVERY EVENING; Duration: 30 days Active Eszopiclone 3 MG 1 tab(s) orally once a day (at bedtime); Duration: 30 day(s) 07/28/2023 Active All Day Allergy 10 MG TAKE 1 TABLET BY M OUTH EVERY DAY; Duration: 90 day(s) Active Ubrelvy 100 MG TAKE 1 TABLET BY CHAR TH ONCE, MAY REPEAT IN 2 HOURS IF HEADACHE STILL PRESENT; Duration: 30 Active Albuterol Sulfate HFA 108 (9 0 Base) MCG/ACT 1 puff as needed Inhalation every 4 hrs Active Vitamin D3 125 MCG (5000 UT) as directed orally once a day; Duration: 30 day(s) 10/16/2020 Active DULoxetine HCl 60 MG 1 cap(s) Orally onc e daily Active CeleBREX 200 MG 1 capsule with food Orally Once a day; Duration: 30 day(s) Active Cyclobenzaprine HCl 10 MG 1 tablet at be dtime as needed Orally Once a day; Duration: 30 day(s) Active Hydroxychloroquine Sulfate 2 00 MG as directed Orally Active Problems Problem Type SNOMED Code ICD Code Onset Dates Problem Status W/U Status Risk Notes Problem Vitamin D deficiency (79283707) Vitamin D deficiency (E55.9) Active confirmed Vital Signs Weight 230.6 lbs 09/20/2023 Blood pressure systolic 142 mm Hg 09/20/19 24 Blood pressure diastolic 86 mm Hg 024 Heart Rate 83 /min 09/20/2023 Height 64 in 09/20/2023 BMI 39.58 kg/m2 09/20/2023 Encounters Encounter Location Date Provider Diagnosis [facility] [address] [place], [place] [id number] 09/20/2023 Evelyn Emanuel Weight gain R63.5 ; IFG (impaired fasting glucose) R73.01 ; Screening mammogram, encounter for Z12.31 ; Other fatigue R53.83 ; Vitamin D deficiency E55.9 and Lipid screening Z13.220 Assessments Encounter Date Diagnosis (ICD Code) Assessment Notes Treatment Notes Treatment Clinical Notes Section Notes 09/20/2023 Weight gain (ICD-10 - R63.5) 09/20/2023 IFG (impaired fasting glucose) (ICD-10 - R73.01) 09/20/2023 Screening mammogram, encounter for (ICD-10 - Z12.31) 09/20/2023 Other fatigue (ICD-10 - R53.83) 09/20/2023 Vitamin D deficiency (ICD-10 - E55.9) 09/20/2023 Lipid screening (ICD-10 - Z13.220) Plan Of Treatment Referrals Referral Date Details 09/20/2023 09/20/2023, demarcus Next Appt Details Follow Up: via phone to repo rt test results, Reason: Progress Notes * BREANNE MARTINEZJEANETTEDOB: 1 (44 yo F)Acc No.[id number]:09/20/2023 Progress Notes Patient: NADER ANNE Provider: ALEXANDER Simms :1980 A ge:43 Y S ex:Female Date:09/20/2023 Address:[address] [place] [address] [address], [place], [id number] Pcp:Zina Lagos Subjective: * Chief Complaints: * 1 . F/u on weight loss. * HPI: C onstitutional: The patient is here for a follow up on weight management. Pt states she is wanting to discuss weight loss. Pt states she is still struggling even with life style changes. 43 year old female presents with c/o Weight gain. * ROS: D ERMATOLOGY: no R sinan. n o H kim. G ASTROENTEROLOGY: no N ausea. n o V omiting. n o D iarrhea.? U ROLOGY: no D ifficulty urinating. n o B lood in urine. * Medical History: A llergic Rhinitis, Migraine Headache, RT Shoulder Labral and Rotator Cuff Tear, LT Shoulder Dislocation, Insomnia, Fibromyalgia, Mixed Connective Tissue Disease. * Surgical History: L T Closed Arm Reduction 1993, RT Knee Arthroscope 1998, RT Shoulder Arthroscope 2002, Tonsillectomy 2006, Hysterectomy 09/2017. * Family History: F ather: alive 59 yrs. M other: 45 yrs, breast cancer. P aternal Grand Mother: , breast cancer. M aternal Grand Mother: , breast cancer. 1 son(s) , 1 daughter(s) . . paternal aunts x 3 had breast cancer. * Social History: C URRENT TOBACCO USE S moking Status: Patient does NOT smoke. C affeine: yes, frequency:coffee. Home smoke detector use: yes. Marital Status: . Past smoking status: no. Alcohol: Yes, Type: , Frequency: ,Years: , Determination:, occasional. Sexually active: yes. * Medications: T aking CeleBREX 200 MG Capsule 1 capsule with food Orally Once a day , Taking Cyclobenzaprine HCl 10 MG Tablet 1 tablet at bedtime as needed Orally Once a day , Taking Hydroxychloroquine Sulfate 200 MG Tablet as directed Orally , Taking Albuterol Sulfate HFA 108 (90 Base) MCG/ACT Aerosol Solution 1 puff as needed Inhalation every 4 hrs , Taking Vitamin D3 125 MCG (5000 UT) Capsule as directed orally once a day , Taking DULoxetine HCl 60 MG Capsule Delayed Release Particles 1 cap(s) Orally once daily , Taking All Day Allergy 10 MG Tablet TAKE 1 TABLET BY MOUTH EVERY DAY , Taking Ubrelvy 100 MG Tablet TAKE 1 TABLET BY MOUTH ONCE, MAY REPEAT IN 2 HOURS IF HEADACHE STILL PRESENT , Taking Montelukast Sodium 10 MG Tablet TAKE 1 TABLET BY MOUTH EVERY EVENING , Taking Eszopiclone 3 MG Tablet 1 tab(s) orally once a day (at bedtime) , Discontinued Zithromax Z-Mert 250 MG Tablet as directed Orally once daily , Discontinued Promethazine-DM 6.25-15 MG/5ML Syrup 5 ml orally every 6 hours prn , Discontinued Mounjaro 5 MG/0.5ML Solution Pen-injector 0.5ml Subcutaneous once weekly , Medication List reviewed and reconciled with the patient * Allergies: N .K.D.A. Objective: * Vitals: W t:230.6, Temp:98.3, BP:142/86, HR:83, Nurse:BERT, Ht: 64, Repeat BP:136/86, BMI:39.58. * Examination: G eneral Examination: General Appearance: N AD. H EENT: u nremarkable.?Oral cavity: n o lesions, mucosa moist and WNL, no erythema. N mehran: s upple, no lymphadenopathy. C hest: n ormal shape and expansion. H eart: R SR. L ungs: c lear to auscultation. A bdomen: bowel sounds present, soft and nontender, no organomegaly or masses, no guarding or rigidity. N eurologic Exam: I ntact, gait normal. S kin: n ormal, no rash. P eripheral pulses: n ormal (2+) bilaterally. E xtremities: n o leg edema. Assessment: * Assessment: 1. W eight gain - R63.5 (Primary) 2 . I FG (impaired fasting glucose) - R73.01 3 . S creening mammogram, encounter for - Z04.23 4 . O ther fatigue - R53.83 5 . V itamin D deficiency - E55.9 6 . L ipid screening - Z13. Plan: * Treatment: Value Reference Range T SH 1.01 0.465-4.68 - uIU/mL * Evelyn Emanuel 09/21/2023 5: 35:47 PM > see TE ?LAB: H-CMP (Collection Date & Time - 09/21/2023 09:39 AM)* Value Reference Range N A 138 136-145 - mmol/L * K 3.9 3.5-5.1 - mmoL/L * C L 101 98-107 - mmol/L * C O2 28 22.0-30.0 - mmol/L * G AP 12.9 5-15 - mEq/L * B UN 11 7-17 - mg/dl * C REATT 0.50 L 0.52-1.04 - mg/dl * G FRAA 163 >60 - ML/MIN * E GFR 135 >60 - ml/min * G ANDREW 133 H 74-100 - mg/dl * C A 8.9 8.4-10.2 - mg/dl * B ILIT 0.3 0.2-1.3 - mg/dl * A ST 30 14-36 - U/L * A LT 32 12-78 - U/L * T P 6.8 6.3-8.2 - g/dl * A LB 4.1 3.5-5.0 - g/dl * G LOB 2.7 1.3-3.2 - g/dL * A GRATIO 1.5 1.1-1.8 - * A LP 63 38-126 - U/L * Evelyn Emanuel 09/21/2023 5: 35:47 PM > see TE ?LAB: H-T4 free (Collection Date & Time - 09/21/2023 09:39 AM)* Value Reference Range T 4F 0.84 0.78-2.19 - ng/dl * Evelyn Emanuel 09/21/2023 5: 35:47 PM > see TE ? Referral To:, landscaping supervisor??Dietary ?Reason: 2.?IFG (impaired fasting glucose)?LAB: H-Glycohemoglobin A1C (Collection Date & Time - 09/21/2023 09:39 AM)* Value Reference Range H GBA1C 5.5 4.0-6.0 - % * Evelyn Emanuel 09/21/2023 5: 35:47 PM > see TE 3.?Screening mammogram, encounter for?Imaging: Mammogram (Performed Date - 09/27/2023)?see duplicate order* AdelfoEvelyn Lynne 09/20/2023 11 :55:25 AM > Patient would [facility] done at [facility] 09/21/2023 10:09:40 AM > order faxed; facility will notify pt of appt time/date 4.?Other fatigue?LAB: H-CBC (Collection Date & Time - 09/21/2023 09:39 AM)* Value Reference Range W BC 6.8 4.8-10.8 - K/mm3 * R BC 4.75 4.20-5.40 - M/mm3 * H GB 13.8 12.2-16.2 - g/dL * H CT 42.7 37.0-47.0 - % * M CV 89.9 81-99 - fl * M CH 29.1 27.0-31.2 - pg * M CHC 32.4 31.8-35.4 - g/dL * R DW 14.3 11.5-17.5 - % * P LT 324 142-424 - K/mm3 * M PV 7.2 L 7.4-10.4 - fl * N E% 66.5 37.0-80.0 - % * L Y% 26.2 10-50 - % * M O% 4.9 1.7-9.3 - % * E O% 1.5 0.1-12.0 - % * B A% 0.8 0.1-2.0 - % * N E# 4.5 1.8-7.8 - K/mm3 * L Y# 1.8 0.7-4.5 - K/mm3 * M O# 0.3 0.1-1.0 - K/mm3 * E O# 0.1 0.0-0.4 - K/mm3 * B A# 0.1 0-0.2 - K/mm3 * AdelfoEvelyn Lynne 09/21/2023 5: 35:47 PM > see TE ?LAB: H-VITAMIN B12 (Collection Date & Time - 09/21/2023 09:39 AM)* Value Reference Range V ITB12 394 239-931 - pg/mL * Evelyn Emanuel 09/21/2023 5: 35:47 PM > see TE 5.?Vitamin D deficiency?LAB: H-VITAMIN D (Collection Date & Time - 09/21/2023 09:39 AM)* Value Reference Range T VITD 30.6 30-100 - ng/mL * Evelyn Emanuel 09/21/2023 5: 35:47 PM > see TE 6.?Lipid screening?LAB: H-Lipid Panel (Collection Date & Time - 09/21/2023 09:39 AM)* Value Reference Range T RIG 114 30-150 - mg/dl * C HOL 233 H 140-200 - mg/dl * D LDL 154.40 H 100-129 - mg/dL * V LDL 23 0-40 - mg/dL * H DL 60 40-60 - mg/dl * C HLHDL 3.9 H 1-3.5 - * BlakesahraEvelyn Lynne 09/21/2023 5: 35:47 PM > see TE * Follow Up: v ia phone to report test results * Images: Billing Information: * Visit Code: 70412 Office Visit, Est Pt., Level 4. * Procedure Codes: * Electronic signature of ALEXANDER Sr on 02/19/2025 at 11:10 AM EDT Sign off status: Pending * Provider: ALEXANDER Simms Date: 0 09/20/2023 Generated for Printi ng/Faxing/eTransmitting on: 1 11:10 AM EDT History and Physical Notes * HPI (History of Present Illness) Category Sub-Category Detail Notes Category Not es Constitutional Weight gain Examination Category Sub-Category Detail Notes Category Not es General Examination HEENT: unremarkable Heart: RSR Lungs: clear to auscultatio n Abdomen: bowel sounds present , soft and nontender, no organomegaly or masses, no guarding or rigidity Extremities: no leg edema General Appearance: NAD Skin: normal, no rash Neurologic Exam: Intact, gait normal Neck: supple, no lymphaden opathy Oral cavity: no lesions, mucosa m oist and WNL, no erythema Peripheral pulses: normal (2+) bilatera lly Chest: normal shape and exp ansion Consultation Request Notes Referral Date Referring Provider Referred Provider Not es 09/20/2023 Evelyn Emanuel landscaping supervisor, ,
--- OUTSIDE RECORDS SUMMARY | 2024-01-18 05:15 | XMS_ITS ---
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 Role Phone Zina Lagos Primary Care Provider [phone] Evelyn Emanuel Unavailable [phone] Allergies No Known Allergies Results Component Value Reference Range Notes CBC Venipuncture (in house) Reviewed date:01/18/2024 12:28:16 PM Interpretation: Performing Lab: Notes/Report: wbc 7.6 3.5 - 10 lymph 25.3 15 - 50 mid 6.9 2 - 15 gran 67.8 35 - 80 rbc 4.61 3.5 - 5.5 hgb 13.2 11.5 - 16.5 hct 39.5 35 - 55 mcv 85.7 75 - 100 mch 28.7 25 - 35 mchc 33.5 31 - 38 platlet 399 100 - 400 Glycohemoglobin A1c (in hous e) Reviewed date:01/19/2024 10:51:04 AM Interpretation:5.9% Performing Lab: Notes/Report: 5.9% glycohemoglobin 5.9% 5 - 6.5 % P-Vitamin B12 Reviewed date:01/19/2024 10:51:03 AM Interpretation:1455 Performing Lab: Notes/Report: Test performed by [facility] [address] [place] [address] , [address], [place] [address] Artemio Ruiz MD, Insurance Coordinator CLIA: [id number] Vitamin B12 3709 052-3741 pg/mL P-Comprehensive Metabolic Pa joycelyn (CMP) Reviewed date:01/19/2024 10:51:03 AM Interpretation:Normal Performing Lab: Notes/Report: Test performed by [facility] [address] [place] [address] [address], [place] [address] Artemio Ruiz MD, Insurance Coordinator CLIA: [id number] Sodium 136 135-145 mmol/L Potassium 4.5 3.5-5.3 mmol/L Chloride 100 97-108 mmol/L CO2 25 22-32 mmol/L Glucose 98 65-99 mg/dL BUN 15 6-20 mg/dL Creatinine 0.51 0.50-1.00 mg/dL Calcium 9.1 8.6-10.4 mg/dL eGFR by Creatinine 118 >59 mL/min/1.73m2 Protein 6.8 6.0-8.3 g/dL Albumin 4.3 3.5-5.3 g/dL Alkaline Phosphatase 62 35-121 IU/L ALT (SGPT) 19 <5-47 IU/L AST (SGOT) 17 <5-40 IU/L Bilirubin, Total <0.2 <0.2-1.2 mg/dL A/G Ratio 1.7 1.1-2.5 P-Lipid Panel Reviewed date:01/19/2024 10:51:04 AM Interpretation:chol 227, trigs 173, chol/hdl 5.16, non-hdl 183, ldl 148, ldl/hdl 3.4 Performing Lab: Notes/Report: Test performed by [facility] [address] [place] [address] [address], [place] [address] Artemio Ruiz MD, Insurance Coordinator CLIA: [id number] Cholesterol 227 <200 mg/dL Triglycerides 173 <150 mg/dL HDL Cholesterol 44 >39 mg/dL Cholesterol / HDL Ratio 5.16 0.00-4.44 Ratio Non-HDL Cholesterol 183 <130 mg/dL LDL Cholesterol (Calculation) 148 <130 mg/dL LDL Cholesterol Levels* Less than 100 mg/dL Optimal 100 to 129 mg/dL Near Optimal/ Above Optimal 130 to 159 mg/dL Borderline High 160 to 189 mg/dL High 190 mg/dL and above Very High * Categories as recommended by the 2004 ATPIII guidelines LDL/HDL Ratio 3.4 <3.3 Ratio LDL Cholesterol Patient History Test Date: 01/18/2024 LDL Results: 148 Units: mg/dL % Change: - P-TSH reflex to FT4 Reviewed date:01/19/2024 10:51:04 AM Interpretation:Normal Performing Lab: Notes/Report: Test performed by [facility] , [address], [place] [address] Artemio Ruiz MD, Insurance Coordinator CLIA: [id number] TSH reflex to FT4 1.38 0.43-5.25 mU/L P-Microalbumin/Creatinine, R andom Urine Sample Reviewed date:01/19/2024 10:51:04 AM Interpretation:a/c 64 Performing Lab: Notes/Report: Test performed by [facility] , [address], [place] [address] Artemio Ruiz MD, Insurance Coordinator CLIA: [id number] Albumin/Creatinine Ratio, Urine 64 0-30 ug/m g Microalbumin, Urine, Random 4.9 Creatinine, Urine 76.4 P-Vitamin D 25-Hydroxy Reviewed date:01/19/2024 10:51:04 AM Interpretation:28.1 Performing Lab: Notes/Report: Test performed by [facility] [address] , [address], [place] [address] Artemio Ruiz MD, Insurance Coordinator CLIA: [id number] Vitamin D 25-Hydroxy 28.1 30.0-100.0 ng/mL Interpretation of Vitamin D 25 OH: < 20 ng/mL - Deficiency 20 - 29 ng/mL - Insufficiency 30 - 100 ng/mL - Sufficiency > 100 ng/mL - Super-therapeutic- toxicity may occur above this level. Clinical correlation required. REASON FOR VISIT general physical Medications Medication SIG (Take, Route, Frequency, Duration) Notes Start Date End Date Status Hydroxychloroquine Sulfate 2 00 MG as directed Orally Active Cyclobenzaprine HCl 10 MG 1 tablet at be dtime as needed Orally Once a day; Duration: 30 day(s) Active Vitamin D3 125 MCG (5000 UT) as directed orally once a day; Duration: 30 day(s) 10/16/2020 Active Albuterol Sulfate HFA 108 (9 0 Base) MCG/ACT 1 puff as needed Inhalation every 4 hrs Active Ubrelvy 100 MG 1 tablet may take second dose at least 2 hours after first dose as needed Orally Once a day Active Montelukast Sodium 10 MG TAKE 1 TABLET B Y MOUTH EVERY EVENING; Duration: 30 days Active Eszopiclone 3 MG 1 tab(s) orally once a day (at bedtime); Duration: 30 day(s) 10/30/2023 Active All Day Allergy 10 MG TAKE 1 TABLET BY M OUTH EVERY DAY; Duration: 90 day(s) Active CeleBREX 200 MG 1 capsule with food Orally Once a day; Duration: 30 day(s) Active DULoxetine HCl 60 MG 1 cap(s) Orally onc e daily Active Problems Problem Type SNOMED Code ICD Code Onset Dates Problem Status W/U Status Risk Notes Problem Mixed hyperlipidemia (025535976) Mixed hyperlipidemia (E78.2) Active confirmed Vital Signs Weight 236.8 lbs 01/18/2024 Blood pressure systolic 120 mm Hg 01/18/20 24 Blood pressure diastolic 90 mm Hg 024 Heart Rate 84 /min 01/18/2024 Height 64 in 01/18/2024 BMI 40.64 kg/m2 01/18/2024 Encounters Encounter Location Date Provider Diagnosis [facility] [address] [place], [place] [id number] 01/18/2024 Evelyn Emanuel Routine physical examination Z00.00 ; Vitamin B12 deficiency E53.8 ; Vitamin D deficiency E55.9 ; IFG (impaired fasting glucose) R73.01 ; Prediabetes R73.03 ; Mixed hyperlipidemia E78.2 ; Migraine headache G43.909 ; Weight gain R63.5 and Elevated blood pressure reading R03.0 Assessments Encounter Date Diagnosis (ICD Code) Assessment Notes Treatment Notes Treatment Clinical Notes Section Notes 01/18/2024 Routine physical examination (ICD-10 - Z00.00) 01/18/2024 Vitamin B12 deficiency (ICD-10 - E53.8) 01/18/2024 Vitamin D deficiency (ICD-10 - E55.9) 01/18/2024 IFG (impaired fasting glucose) (ICD-10 - R73.01) 01/18/2024 Prediabetes (ICD-10 - R73.03) Patient is going to try to enroll in a wellness program where she can get started on ozempic or mounjaro. 01/18/2024 Mixed hyperlipidemia (ICD-10 - E78.2) 01/18/2024 Migraine headache (ICD-10 - G43.909) 01/18/2024 Weight gain (ICD-10 - R63.5) 01/18/2024 Elevated blood pressure reading (ICD-10 - R03.0) Diastolic pressure is slightly elevated. Patient will monitor at home over the next week and call with readings. Plan Of Treatment Medication Medication Name Sig Start Date Stop Date Notes Ubrelvy 100 MG 1 tablet may take se cond dose at least 2 hours after first dose as needed Orally Once a day Treatment Notes Assessment Notes Prediabetes Patient is going to try to enroll in a wellness program where she can get started on ozempic or mounjaro. Elevated blood pressure reading Diastoli c pressure is slightly elevated. Patient will monitor at home over the next week and call with readings. Next Appt Details Follow Up: via phone to repo rt test results, Reason: Progress Notes * NADER MARTINEZDOB: 1 (44 yo F)Acc No.[id number]:01/18/2024 Physical Patient: Amber DEJAFRANCHESKA NADER Provider: ALEXANDER Simms :1980 A ge:43 Y S ex:Female Date:01/18/2024 Address:[address] [place] [address] [place], [place], [id number] Pcp:Zina Lagos Subjective: * Chief Complaints: * 1 . General physical. * HPI: H PI: 43 year old female presents with c/o Patient is here today for?Pt is here today for a general physical/ check up. Pt sts she is training for a 3 0 mile paddle boarding r [place] next year and would just like to make sure everything is okay for her to do this. Pt sts she needs a refill on her Ubrelvy. . C onstitutional: c/o Weight gain P t sts she would like to talk about gaining, she is concerned about continuing to gain weight . * ROS: D ERMATOLOGY: no R sinan. [...] HOURS IF HEADACHE STILL PRESENT , Taking Eszopiclone 3 MG Tablet 1 tab(s) orally once a day (at bedtime) , Taking Montelukast Sodium 10 MG Tablet TAKE 1 TABLET BY MOUTH EVERY EVENING , Medication List reviewed and reconciled with the patient * Allergies: N .K.D.A. Objective: * Vitals: W t:236.8, Temp:98.5, BP:120/90, HR:84, O2 Sat:96% on RA, Nurse:TRINO, Ht: 64, BMI:40.64. * Examination: G eneral Examination: General Appearance: N AD. H EENT: u nremarkable.?Oral cavity: n o lesions, mucosa moist and WNL, no erythema. N mehran: s upple, no lymphadenopathy. C hest: n ormal shape and expansion. H eart: R SR. L ungs: c lear to auscultation. A bdomen: b owel sounds present, soft and nontender, no organomegaly or masses, no guarding or rigidity. N eurologic Exam: I ntact, gait normal. S kin: n ormal, no rash. P eripheral pulses: n ormal (2+) bilaterally. E xtremities: n o leg edema, sensation normal in both feet, no skin breakdown. D IABETIC FOOT EXAM D ate 0 01/18/2024. Assessment: * Assessment: 1. R outine physical examination - Z00.00 (Primary) 2 . V itamin B12 deficiency - E53.8 3 . V itamin D deficiency - E55.9 4 . I FG (impaired fasting glucose) - R73.01 5 . P rediabetes - R73.03 6 . Mixed hyperlipidemia - E78.2 7 . M igraine headache - G43.909 ?8. W eight gain - R63.5 9 . E levated blood pressure reading - R03.0 ? Plan: * Treatment: Value Reference Range w bc 7.6 3.5 - 10 * l ymph 25.3 15 - 50 * m id 6.9 2 - 15 * g ran 67.8 35 - 80 * r bc 4.61 3.5 - 5.5 * h gb 13.2 11.5 - 16.5 * h ct 39.5 35 - 55 * m cv 85.7 75 - 100 * m ch 28.7 25 - 35 * m chc 33.5 31 - 38 * p latlet 399 100 - 400 * CarmeloAdrianne 01/18/2024 11:12 :15 AM >Evelyn Emanuel 01/18/2024 12:28:13 PM > 2.?Vitamin B12 deficiency?LAB: P-Vitamin B12 (Collection Date & Time - 01/18/2024 09:15 AM)?1455* Value Reference Range V itamin B12 1455 H 232-1245 - pg/mL * Evelyn Emanuel 01/19/2024 10 :50:58 AM > see TE 3.?Vitamin D deficiency?LAB: P-Vitamin D 25-Hydroxy (Collection Date & Time - 01/18/2024 09:15 AM)? 28.1* Value Reference Range V itamin D 25-Hydroxy 28.1 L 30.0-100.0 - ng/mL * Evelyn Emanuel 01/19/2024 10 :50:58 AM > see TE 4.?IFG (impaired fasting glucose)?LAB: P-Comprehensive Metabolic Panel (CMP) (Collection Date & Time - 01/18/2024 09:15 AM)?Normal* Value Reference Range A /G Ratio 1.7 1.1-2.5 - * A lbumin 4.3 3.5-5.3 - g/dL * A lkaline Phosphatase 62 35-121 - IU/L * A LT (SGPT) 19 <5-47 - IU/L * A ST (SGOT) 17 <5-40 - IU/L * B ilirubin, Total <0.2 <0.2-1.2 - mg/dL * B UN 15 6-20 - mg/dL * C alcium 9.1 8.6-10.4 - mg/dL * C hloride 100 97-108 - mmol/L * C O2 25 22-32 - mmol/L * C reatinine 0.51 0.50-1.00 - mg/dL * G lucose 98 65-99 - mg/dL * P otassium 4.5 3.5-5.3 - mmol/L * S odium 136 135-145 - mmol/L * P rotein 6.8 6.0-8.3 - g/dL * e GFR by Creatinine 118 >59 - mL/min/1.73m2 * Evelyn Emanuel 01/19/2024 10 :50:58 AM > see TE ?LAB: Glycohemoglobin A1c (in house) (Collection Date & Time - 01/18/2024)? 5.9%* Value Reference Range g lycohemoglobin 5.9% 5 - 6.5 % * Adrianne Rhodes 01/18/2024 11:12 :59 AM > Evelyn Emanuel 01/19/2024 10:50:58 AM > see TE 5.?Prediabetes?LAB: P-Microalbumin/Creatinine, Random Urine Sample (Collection Date & Time - 01/18/2024 09:15 AM)?a/c 64* Value Reference Range A lbumin/Creatinine Ratio, Urine 64 H 0-30 - ug /mg * C reatinine, Urine 76.4 - mg/dL * M icroalbumin, Urine, Random 4.9 - mg/dL * Evelyn Emanuel 01/19/2024 10 :50:58 AM > see TE Notes: Patient is going to try to enroll in a wellness program where she can get started on ozempicor mounjaro.??6.?Mixed hyperlipidemia?LAB: P-Lipid Panel (Collection Date & Time - 01/18/2024 09:15 AM)?chol 227, trigs 173, chol/hdl 5.16, non-hdl 183, ldl 148, ldl/hdl 3.4* Value Reference Range C holesterol / HDL Ratio 5.16 H 0.00-4.44 - Ratio * C holesterol 227 H <200 - mg/dL * H DL Cholesterol 44 >39 - mg/dL * L DL Cholesterol (Calculation) 148 H <130 - mg/d L * L DL/HDL Ratio 3.4 H <3.3 - Ratio * N on-HDL Cholesterol 183 H <130 - mg/dL * T riglycerides 173 H <150 - mg/dL * Evelyn Emanuel 01/19/2024 10 :50:58 AM > see TE 7.?Migraine headache? Refill Ubrelvy Tablet, 100 MG, 1 tablet may take second dose at least 2 hours after first dose as needed, Orally, Once a day, 12 Tablet, Refills 3.??8.?Weight gain?LAB: P-TSH reflex to FT4 (Collection Date & Time - 01/18/2024 09:15 AM)? Normal* Value Reference Range T SH reflex to FT4 1.38 0.43-5.25 - mU/L * Evelyn Emanuel 01/19/2024 10 :50:58 AM > see TE 9.?Elevated blood pressure reading? Notes: Diastolic pressure is slightly elevated. Patient will monitor at home over the next week andcall with readings.?? * Procedure Codes: 9 [address] [place], [address] CAPILLARY BLOOD DRAW, 91705 GLYCATED HEMOGLOBIN TEST, Modifiers: QW , 98173 CBC WITH AUTO DIFF, 80792 VENIPUNCT, ROUTINE* * Follow Up: v ia phone to report test results * Images: Billing Information: * Visit Code: 94459 Preventive Care Est Pt Age 40-64. Modifiers: 25 83300 Office Visit, Est Pt., Level 3. * Procedure Codes: [address] [place]. [address] CAPILLARY BLOOD DRAW. 31558 GLYCATED HEMOGLOBIN TEST. Modifiers: QW 16426 CBC WITH AUTO DIFF. 88815 VENIPUNCT, ROUTINE*. * Electronic signature of ALEXANDER Sr on 02/19/2025 at 11:09 AM EDT Sign off status: Pending * Provider: ALEXANDER Simms Date: 0 01/18/2024 Generated for Laura briggs/[place]/eTransmitting on: 1 11:09 AM EDT History and Physical Notes * HPI (History of Present Illness) Category Sub-Category Detail Notes Category Not es Constitutional Weight gain Pt sts she would like to talk about gaining, she is concerned about continuing to gain weight HPI Patient is here today for Pt is here today for a general physical/ check up. Pt sts she is training for a 30 mile paddle boarding race next year and would just like to make sure everything is okay for her to do this. Pt sts she needs a refill on her Ubrelvy. Examination Category Sub-Category Detail Notes Category Not es General Examination HEENT: unremarkable Heart: RSR Lungs: clear to auscultatio n Abdomen: bowel sounds present , soft and nontender, no organomegaly or masses, no guarding or rigidity Extremities: no leg edema, sensat ion normal in both feet, no skin breakdown General Appearance: NAD Skin: normal, no rash Neurologic Exam: Intact, gait normal Neck: supple, no lymphaden opathy Oral cavity: no lesions, mucosa m oist and WNL, no erythema Peripheral pulses: normal (2+) bilatera lly Chest: normal shape and exp ansion DIABETIC FOOT EXAM Date: 01/18/2024
--- OUTSIDE RECORDS SUMMARY | 2024-04-18 06:45 | XMS_ITS ---
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 Name Role Phone Zina Lagos Primary Care Provider Baltazar Reynolds Unavailable [phone] Allergies No Known Allergies Results Component Value Reference Range Notes Influenza Screen (in house) Reviewed date:04/18/2024 11:38:32 AM Interpretation: Performing Lab: Notes/Report: results Neg REASON FOR VISIT Fever, Nasal Congestion Medications Medication SIG (Take, Route, Frequency, Duration) Notes Start Date End Date Status Eszopiclone 3 MG 1 tab(s) orally once a day (at bedtime); Duration: 30 day(s) 01/31/2024 Active Montelukast Sodium 10 MG TAKE 1 TABLET B Y MOUTH EVERY EVENING; Duration: 30 days Active Promethazine-DM 6.25-15 MG/5ML 5 ml as needed Orally every 6 hrs 04/18/2024 Active Tamiflu 75 MG 1 capsule Orally Twi ce a day; Duration: 5 day(s) 04/18/2024 Active Ozempic (1 MG/DOSE) 4 MG/3ML 1 mg Subcut aneous once a week 04/01/2024 Active All Day Allergy 10 MG TAKE 1 TABLET BY M OUTH EVERY DAY; Duration: 90 day(s) Active DULoxetine HCl 60 MG 1 cap(s) Orally onc e daily Active Ubrelvy 100 MG 1 tablet may take second dose at least 2 hours after first dose as needed Orally Once a day Active Vitamin D3 125 MCG (5000 UT) as directed orally once a day; Duration: 30 day(s) 10/16/2020 Active Albuterol Sulfate HFA 108 (9 0 Base) MCG/ACT 1 puff as needed Inhalation every 4 hrs Active Hydroxychloroquine Sulfate 200 MG as directed Orally Active Cyclobenzaprine HCl 10 MG 1 tablet at be dtime as needed Orally Once a day; Duration: 30 day(s) Active CeleBREX 200 MG 1 capsule with food Orally Once a day; Duration: 30 day(s) Active Vital Signs Weight 232.4 lbs 04/18/2024 Blood pressure systolic 140 mm Hg 04/18/20 24 Blood pressure diastolic 90 mm Hg 024 Heart Rate 82 /min 04/18/2024 Height 64 in 04/18/2024 BMI 39.89 kg/m2 04/18/2024 Encounters Encounter Location Date Provider Diagnosis [facility] [address] [facility] [address] [place] [address], [place] [id number] 04/18/2024 Baltazar Reynolds Influenza J11.1 Assessments Encounter Date Diagnosis (ICD Code) Assessment Notes Treatment Notes Treatment Clinical Notes Section Notes 04/18/2024 Influenza (ICD-10 - J11.1) Plan Of Treatment Medication Medication Name Sig Start Date Stop Date Notes Promethazine-DM 6.25-15 MG/5ML 5 ml as n eeded Orally every 6 hrs 04/18/2024 Tamiflu 75 MG 1 capsule Orally Twi ce a day; Duration: 5 day(s) 04/18/2024 Next Appt Details Follow Up: prn, Reason: Progress Notes * BREANNE MARTINEZJEANETTEDOB: 1 (44 yo F)Acc No.[id number]:04/18/2024 Progress Notes Patient: NADER ANNE Provider: Meg Reynolds M.D. :1980 A ge:43 Y S ex:Female Date:04/18/2024 Address:[address] [place], [place] [address], [id number] Pcp:Zina Lagos Subjective: * Chief Complaints: * 1 . Fever, Nasal Congestion. * HPI: E NT/respiratory: 43 year old female presents with c/o cough T he patient is here today with c/o cough and congestion. Pt states this started yesterday and today she woke up with sore throat. Pt states she has not had body aches and some shortness of breath. c/o Short of Breath. c/o body aches. Denies : Fever. * ROS: D ERMATOLOGY: no R sinan. [...] DAY , Taking Ubrelvy 100 MG Tablet 1 tablet may take second dose at least 2 hours after first dose as needed Orally Once a day , Taking Eszopiclone 3 MG Tablet 1 tab(s) orally once a day (at bedtime) , Taking Montelukast Sodium 10 MG Tablet TAKE 1 TABLET BY MOUTH EVERY EVENING , Taking Ozempic (1 MG/DOSE) 4 MG/3ML Solution Pen-injector 1 mg Subcutaneous once a week , Medication List reviewed and reconciled with the patient * Allergies: N .K.D.A. Objective: * Vitals: W t:232.4, Temp:98.1, BP:140/90, HR:82, O2 Sat:98% on RA, Nurse:BERT, Ht: 64, BMI:39.89. * Examination: E NT/Respiratory: General Appearance: N AD. H eart : R RR, normal S1 S2. L ungs: c lear to auscultation bilaterally. Assessment: * Assessment: 1. I nflumichella - J11.1 (Primary) Plan: * Treatment: Value Reference Range r esults Neg * Rosalie Boyle 04/18/2024 11 :24:31 AM > , Provider reviewed results while patient in office. * Procedure Codes: 9 4760 [place], [address] Flu Test- Nasal Swab, Modifiers: QW * Follow Up: p rn * Images: Billing Information: * Visit Code: 93163 Office Visit, Est Pt., Level 3. * Procedure Codes: [address] [place]. [address] Flu Test- Nasal Swab. Modifiers: QW * Electronic signature of Emani Reynolds MD on 02/19/2025 at 11:09 AM EDT Sign off status: Pending * Provider: Meg Reynolds M.D. Date: 06/19/2023 Generated for Laura briggs/[place]/eTpaulasmitting on: 11:09 AM EDT History and Physical Notes * HPI (History of Present Illness) Category Sub-Category Detail Notes Category Not es ENT/respiratory Short of Breath cough The patient is here today with c/o cough and congestion. Pt states this started yesterday and today she woke up with sore throat. Pt states she has not had body aches and some shortness of breath Fever body aches Examination Category Sub-Category Detail Notes Category Not es ENT/Respiratory Heart : RRR, normal S1 S2 Lungs: clear to auscultatio n bilaterally General Appearance: NAD
--- OUTSIDE RECORDS SUMMARY | 2024-05-22 06:45 | XMS_ITS ---
[facility] Address [address] [facility] [address] [place] [id number] Care Team Providers Care Yoke Presser Name Role Phone Zina Lagos Primary Care Provider BlakeEvelyn bocanegra Unavailable [phone] Allergies No Known Allergies Results Component Value Reference Range Notes Influenza Screen (in house) Reviewed date:05/22/2024 11:47:01 AM Interpretation:Negative Performing Lab: Notes/Report: Negative results neg CBC Fingerstick (in house) Reviewed date:05/22/2024 11:44:34 AM Interpretation: Performing Lab: Notes/Report: wbc 8.8 3.5 - 10 lym 27.8 15 - 50 mid 6.1 2 - 15 gran 66.1 35 - 80 rbc 5.03 3.5 - 5.5 hgb 14.2 11.5 - 16.5 hct 42.4 35 - 55 mcv 84.2 75 - 100 mch 28.2 25 - 35 mchc 33.5 31 - 38 plat 231 100 - 400 Covid test (in house) Reviewed date:05/22/2024 11:47:35 AM Interpretation:Negative Performing Lab: Notes/Report: Negative Result: neg REASON FOR VISIT poss sinus infection Medications Medication SIG (Take, Route, Frequency, Duration) Notes Start Date End Date Status Ozempic (2 MG/DOSE) 8 MG/3ML 2 mg Subcut aneous once weekly 05/01/2024 Active Ubrelvy 100 MG 1 tablet may take second dose at least 2 hours after first dose as needed Orally Once a day Active Ondansetron HCl 4 MG 1 tablet Orally thr ee times a day as needed 04/22/2024 Active Eszopiclone 3 MG 1 tab(s) orally once a day (at bedtime); Duration: 30 day(s) 05/02/2024 Active Medrol 4 MG as directed orally daily; Duration: 6 days 05/22/2024 Active Promethazine-DM 6.25-15 MG/5ML 5 ml orally every 6 hours prn; Duration: 5 days 05/22/2024 Active Montelukast Sodium 10 MG TAKE 1 TABLET B Y MOUTH EVERY EVENING; Duration: 30 days Active All Day Allergy 10 MG TAKE 1 TABLET BY M OUTH EVERY DAY; Duration: 90 day(s) Active Albuterol Sulfate HFA 108 (9 0 Base) MCG/ACT 1 puff as needed Inhalation every 4 hrs Active Hydroxychloroquine Sulfate 200 MG as directed Orally Active Vitamin D3 125 MCG (5000 UT) as directed orally once a day; Duration: 30 day(s) 10/16/2020 Active Albuterol Sulfate HFA 108 (9 0 Base) MCG/ACT 1 puff as needed Inhalation every 4 hrs, prn 05/22/2024 Active DULoxetine HCl 60 MG 1 cap(s) Orally onc e daily Active Cyclobenzaprine HCl 10 MG 1 tablet at be dtime as needed Orally Once a day; Duration: 30 day(s) Active CeleBREX 200 MG 1 capsule with food Orally Once a day; Duration: 30 day(s) Active Vital Signs Weight 226.4 lbs 05/22/2024 Blood pressure systolic 138 mm Hg 05/22/19 25 Blood pressure diastolic 96 mm Hg 025 Heart Rate 91 /min 05/22/2024 Height 64 in 05/22/2024 BMI 38.86 kg/m2 05/22/2024 Encounters Encounter Location Date Provider Diagnosis [facility] [address] [place], [place] [id number] 05/22/2024 Evelyn Crowdy Bronchitis J40 and Polyarthralgia M25.50 Assessments Encounter Date Diagnosis (ICD Code) Assessment Notes Treatment Notes Treatment Clinical Notes Section Notes 05/22/2024 Bronchitis (ICD-10 - J40) 05/22/2024 Polyarthralgia (ICD-10 - M25.50) Steroids should help with this as well. Plan Of Treatment Medication Medication Name Sig Start Date Stop Date Notes Medrol 4 MG as directed orally d aily; Duration: 6 days 05/22/2024 Promethazine-DM 6.25-15 MG/5ML 5 ml orally every 6 hours prn; Duration: 5 days 05/22/2024 Albuterol Sulfate HFA 108 (9 0 Base) MCG/ACT 1 puff as needed Inhalation every 4 hrs, prn 05/22/2024 Treatment Notes Assessment Notes Polyarthralgia Steroids should help with this as well. Next Appt Details Follow Up: prn, Reason: Progress Notes * NADER MARTINEZDOB: 1 (44 yo F)Acc No.[id number]:05/22/2024 Progress Notes Patient: NADER ANNE Provider: ALEXANDER Simms :1980 A ge:43 Y S ex:Female Date:05/22/2024 Address:[address] [place] [address], [id number] Pcp:Zina Lagos Subjective: * Chief Complaints: * 1 . Poss sinus infection. * HPI: E NT/respiratory: 43 year old female presents with c/o cough. c/o nasal congestion P t presents today with c/o nasal congestion and sinus pressure. Pt sts that she has had a cough since she had the flu in March. Pt sts that the nasal congestion and pressure since Monday. Pt sts that she thought it was just allergies at first but sts that it has got worse. c/o facial pain/pressure. R heumatology: c/o joint pain P t sts that she has a flare up and nothing she has taken has helped. She has been taking the celebrex and cymbalta and has done massage. . * ROS: D ERMATOLOGY: no R [...] TABLET BY MOUTH EVERY DAY , Taking Montelukast Sodium 10 MG Tablet TAKE 1 TABLET BY MOUTH EVERY EVENING , Taking Ondansetron HCl 4 MG Tablet 1 tablet Orally three times a day as needed , Taking Ubrelvy 100 MG Tablet 1 tablet may take second dose at least 2 hours after first dose as needed Orally Once a day , Taking Ozempic (2 MG/DOSE) 8 MG/3ML Solution Pen-injector 2 mg Subcutaneous once weekly , Taking Eszopiclone 3 MG Tablet 1 tab(s) orally once a day (at bedtime) , Discontinued Tamiflu 75 MG Capsule 1 capsule Orally Twice a day , Discontinued Promethazine-DM 6.25-15 MG/5ML Syrup 5 ml as needed Orally every 6 hrs , Medication List reviewed and reconciled with the patient * Allergies: N .K.D.A. Objective: * Vitals: W t:226.4, Temp:98.1, BP:138/96, HR:91, O2 Sat:98% on RA, Nurse:SHANAE, Ht: 64, BMI:38.86. * Examination: E NT/Respiratory: General Appearance: N AD. E ars: a uditory canals normal bilaterally, TM's WNL. N ose : turbinates red, congested. S inuses : non tender bilaterally. O ral cavity : erythema without exudate on pharynx, PND present. N mehran : n o cervical lymphadenopathy. H eart : R RR, normal S1 S2, no murmurs. L ungs:? expiratory wheezes, no rales. Assessment: * Assessment: 1. B ronchitis - J40 (Primary) 2 . P olyarthralgia - M25.50 ? Plan: * Treatment: Value Reference Range r esults neg * Brianne Mariscal 05/22/2024 11:4 6:54 AM > reviewed w/ pt in office ?LAB: CBC Fingerstick (in house) (Collection Date & Time - 05/22/2024)* Value Reference Range w bc 8.8 3.5 - 10 * l ym 27.8 15 - 50 * m id 6.1 2 - 15 * g ran 66.1 35 - 80 * r bc 5.03 3.5 - 5.5 * h gb 14.2 11.5 - 16.5 * h ct 42.4 35 - 55 * m cv 84.2 75 - 100 * m ch 28.2 25 - 35 * m chc 33.5 31 - 38 * p lat 231 100 - 400 * Brianne Mariscal 05/22/2024 11:4 4:20 AM > results reviewed w/ pt in office ?LAB: Covid test (in house) (Collection Date & Time - 05/22/2024)?Negative* Value Reference Range R esult: neg * Brianne Mariscal 05/22/2024 11:4 7:25 AM > results reviewed w/ pt in office 2.?Polyarthralgia? Notes: Steroids should help with this as well.?? * Procedure Codes: 3 6416 CAPILLARY BLOOD DRAW, [address] [place], [address] CBC WITH AUTO DIFF, 90200 Flu Test- Nasal Swab, Modifiers: QW , 97449 COVID TEST IN HOUSE, Modifiers: QW * Follow Up: p rn * Images: Billing Information: * Visit Code: 53301 Office Visit, Est Pt., Level 3. * Procedure Codes: 57186 CAP[place]. [address] [place]. [address] CBC WITH AUTO DIFF. 37504 Flu Test- Nasal Swab. Modifiers: QW 33418 COVID TEST IN HOUSE. Modifiers: QW * Electronic signature of ALEXANDER Sr on 02/19/2025 at 11:10 AM EDT Sign off status: Pending * Provider: ALEXANDER Simms Date: 0 05/22/2024 Generated for Printi ng/Faxing/eTransmitting on: 11:10 AM EDT History and Physical Notes * HPI (History of Present Illness) Category Sub-Category Detail Notes Category Not es ENT/respiratory facial pain/pressure cough nasal congestion Pt presents today wi th c/o nasal congestion and sinus pressure. Pt sts that she has had a cough since she had the flu in March. Pt sts that the nasal congestion and pressure since Monday. Pt sts that she thought it was just allergies at first but sts that it has got worse Rheumatology joint pain Pt sts that she has a flare up and nothing she has taken has helped. She has been taking the celebrex and cymbalta and has done massage. Examination Category Sub-Category Detail Notes Category Not es ENT/Respiratory Oral cavity : erythema without exudate on pharynx, PND present Sinuses : non tender bilateral ly Ears: auditory canals norm al bilaterally, TM's WNL Neck : no cervical lymphade nopathy Heart : RRR, normal S1 S2, n o murmurs Lungs: expiratory wheezes, no rales General Appearance: NAD Nose : turbinates red, wilfred ested
--- OUTSIDE RECORDS SUMMARY | 2024-07-25 09:30 | XMS_ITS ---
Author Organization [facility] Address [address] [place] [id number] Care Team Providers Care Slubber Tender Name Role Phone Zina Lagos Primary Care Provider BlakeFabian bocanegraa Unavailable [phone] Allergies No Known Allergies Results Component Value Reference Range Notes Influenza Screen (in house) Reviewed date:07/25/2024 03:15:36 PM Interpretation: Performing Lab: Notes/Report: results Pos A Covid test (in house) Reviewed date:07/25/2024 03:15:36 PM Interpretation: Performing Lab: Notes/Report: Result: Neg REASON FOR VISIT possible sinus infection Medications Medication SIG (Take, Route, Frequency, Duration) Notes Start Date End Date Status Montelukast Sodium 10 MG TAKE 1 TABLET B Y MOUTH EVERY EVENING; Duration: 30 Active Ozempic (2 MG/DOSE) 8 MG/3ML 2 mg Subcut aneous once weekly; Duration: 30 days 05/01/2024 Active Albuterol Sulfate HFA 108 (9 0 Base) MCG/ACT 1 puff as needed Inhalation every 4 hrs, prn 05/22/2024 Active Cnjjzagmt-Wejcsioc-LW 30-2-1 0 MG/5ML 5-10 ml orally 4 times a day, prn 07/25/2024 Active Ondansetron 4 MG 1 tablet on the tong ue and allow to dissolve Orally three times a day as needed 07/25/2024 Active Ubrelvy 100 MG 1 tablet may take second dose at least 2 hours after first dose as needed Orally Once a day Active Eszopiclone 3 MG 1 tab(s) orally once a day (at bedtime); Duration: 30 day(s) 05/02/2024 Active Ondansetron HCl 4 MG 1 tablet Orally thr ee times a day as needed 04/22/2024 Active Albuterol Sulfate HFA 108 (9 0 Base) MCG/ACT 1 puff as needed Inhalation every 4 hrs Active Tamiflu 75 MG 1 capsule Orally Twi ce a day; Duration: 5 day(s) 07/25/2024 Active All Day Allergy 10 MG TAKE 1 TABLET BY M OUTH EVERY DAY; Duration: 90 day(s) Active Vitamin D3 125 MCG (5000 UT) as directed orally once a day; Duration: 30 day(s) 10/16/2020 Active DULoxetine HCl 60 MG 1 cap(s) Orally onc e daily Active Hydroxychloroquine Sulfate 200 MG as directed Orally Active Cyclobenzaprine HCl 10 MG 1 tablet at be dtime as needed Orally Once a day; Duration: 30 day(s) Active CeleBREX 200 MG 1 capsule with food Orally Once a day; Duration: 30 day(s) Active Vital Signs Weight 226 lbs 07/25/2024 Blood pressure systolic 144 mm Hg 07/26/19 25 Blood pressure diastolic 88 mm Hg 025 Heart Rate 86 /min 07/25/2024 Height 64 in 07/25/2024 BMI 38.79 kg/m2 07/25/2024 Encounters Encounter Location Date Provider Diagnosis [facility] [address], [place] [id number] 07/25/2024 Evelyn Emanuel Influenza A J10. 1 Assessments Encounter Date Diagnosis (ICD Code) Assessment Notes Treatment Notes Treatment Clinical Notes Section Notes 07/25/2024 Influenza A (ICD-10 - J10.1) Rest, fluids, tylenol or motrin for fevers. Home until fever free for 24-48 hours without the use of medication. Plan Of Treatment Medication Medication Name Sig Start Date Stop Date Notes Ryfyvmlxu-Yjudsoup-WO 30-2-1 0 MG/5ML 5-10 ml orally 4 times a day, prn 07/25/2024 Ondansetron 4 MG 1 tablet on the tong ue and allow to dissolve Orally three times a day as needed 07/25/2024 Tamiflu 75 MG 1 capsule Orally Twi ce a day; Duration: 5 day(s) 07/25/2024 Treatment Notes Assessment Notes Influenza A Rest, fluids, tyleno l or motrin for fevers. Home until fever free for 24-48 hours without the use of medication. Next Appt Details Follow Up: prn, Reason: Progress Notes * NADER MARTINEZDOB: 1 (44 yo F)Acc No.[id number]:07/25/2024 Progress Notes Patient: NADER ANNE Provider: ALEXANDER Simms :1980 A ge:43 Y S ex:Female Date:07/25/2024 Address:[address] [place] [address], [place], [id number] Pcp:Zina Lagos Subjective: * Chief Complaints: * 1 . Possible sinus infection. * HPI: E NT/respiratory: 43 year old female presents with c/o cough P t complains of small amount of white sputum cough for 2-3 days. Associated with bodyaches, headache and nasal congestion. * ROS: D ERMATOLOGY: no R sinan. n o H kim. G ASTROENTEROLOGY: no N ausea. n o V omiting. U ROLOGY: no D ifficulty urinating. n o B lood in urine. * Medical History: A llergic Rhinitis, Migraine Headache, RT Shoulder Labral and Rotator Cuff Tear, LT Shoulder Dislocation, Insomnia, Fibromyalgia, Mixed Connective Tissue Disease. * Surgical History: L T Closed Arm Reduction 1993, RT Knee Arthroscope 1998, RT Shoulder Arthroscope 2002, Tonsillectomy 2006, Hysterectomy 09/2017. * Hospitalization/Major Diagno stic Procedure: D enies Past Hospitalization. * Family History: F ather: alive 59 [...] occasional. Sexually active: yes. * Medications: T mikaylag CeleBREX 200 MG Capsule 1 capsule with [...] TABLET BY MOUTH EVERY DAY , Taking Ondansetron HCl 4 MG Tablet 1 tablet Orally three times a day as needed , Taking Ubrelvy 100 MG Tablet 1 tablet may take second dose at least 2 hours after first dose as needed Orally Once a day , Taking Eszopiclone 3 MG Tablet 1 tab(s) orally once a day (at bedtime) , Taking Albuterol Sulfate HFA 108 (90 Base) MCG/ACT Aerosol Solution 1 puff as needed Inhalation every 4 hrs, prn , Taking Montelukast Sodium 10 MG Tablet TAKE 1 TABLET BY MOUTH EVERY EVENING , Taking Ozempic (2 MG/DOSE) 8 MG/3ML Solution Pen-injector 2 mg Subcutaneous once weekly , Discontinued Promethazine- DM 6.25-15 MG/5ML Syrup 5 ml orally every 6 hours prn , Discontinued Medrol 4 MG Tablet Therapy Pack as directed orally daily , Medication List reviewed and reconciled with the patient * Allergies: N .K.D.A. Objective: * Vitals: W t:226, Temp:97.8, BP:144/88, HR:86, O2 Sat:98% on RA, Nurse:jasmyne, Ht: 64, BMI:38.79. * Examination: E NT/Respiratory: General Appearance: N AD. E ars: a uditory canals normal bilaterally, TM's WNL. N ose : turbinates red, congested. S inuses : tender maxillary sinuses bilaterally. O ral cavity : n o erythema or exudate seen on pharynx. Neck : n o cervical lymphadenopathy. H eart : R RR, normal S1 S2, no murmurs. L ungs: c lear to auscultation bilaterally. Assessment: * Assessment: 1. I nfbatsheva A - J10.1 (Primary) Plan: * Treatment: Value Reference Range r esults Pos A * Keisha Brothers 07/25/2024 1:42:34 PM > , Provider reviewed results while patient in office. ?LAB: Covid test (in house) (Collection Date & Time - 07/25/2024)* Value Reference Range R esult: Neg * Keisha Brothers 07/25/2024 1:53:53 PM > , Provider reviewed results while patient in office. Notes: Rest, fluids, tylenol or motrin for fevers. Home until fever free for 24- 48 hours without the use of medication.?? * Procedure Codes: 9 4760 [place], [address] Flu Test- Nasal Swab, Modifiers: QW , 34048 COVID TEST IN HOUSE, Modifiers: QW , 3077F SYST BP = 140 MM HG6 IT, 3079F DIAST BP 80-89 MM HG * Follow Up: p rn * Images: Billing Information: * Visit Code: 34668 Office Visit, Est Pt., Level 3. * Procedure Codes: [address] [place]. [address] Flu Test- Nasal Swab. Modifiers: QW 15424 COVID TEST IN HOUSE. Modifiers: QW 3077F SYST BP = 140 MM HG6 IT. 3079F DIAST BP 80-89 MM HG. * Electronic signature of ALEXANDER Sr on 02/19/2025 at 11:10 AM EDT Sign off status: Pending * Provider: ALEXANDER Simms Date: 0 07/25/2024 Generated for Laura briggs/[place]/eTransmitting on: 1 11:10 AM EDT History and Physical Notes * HPI (History of Present Illness) Category Sub-Category Detail Notes Category Not es ENT/respiratory cough Pt complains of small amount of white sputum cough for 2-3 days. Associated with bodyaches, headache and nasal congestion Examination Category Sub-Category Detail Notes Category Not es ENT/Respiratory Oral cavity : no erythema or exudate s een on pharynx Sinuses : tender maxillary sin uses bilaterally Ears: auditory canals norm al bilaterally, TM's WNL Neck : no cervical lymphade nopathy Heart : RRR, normal S1 S2, n o murmurs Lungs: clear to auscultatio n bilaterally General Appearance: NAD Nose : turbinates red, wilfred ested
--- OUTSIDE RECORDS SUMMARY | 2024-10-23 06:30 | XMS_ITS ---
Author Organization [facility] Address [address] [place] [id number] Care Team Providers Care Administrative Support Technician Name Role Phone Zina Lagos Primary Care Provider [phone] BlakeEvelyn bocanegra Unavailable [phone] Allergies No Known Allergies Results Component Value Reference Range Notes Influenza Screen (in house) Reviewed date:10/24/2024 04:54:43 PM Interpretation: Performing Lab: Notes/Report: results neg Rapid Strep- Inhouse Reviewed date:10/24/2024 04:54:43 PM Interpretation: Performing Lab: Notes/Report: strep test neg CBC Fingerstick (in house) Reviewed date:10/24/2024 04:54:43 PM Interpretation: Performing Lab: Notes/Report: wbc 9.4 3.5 - 10 lym 23.3 15 - 50 mid 5.6 2 - 15 gran 71.1 35 - 80 rbc 5.02 3.5 - 5.5 hgb 14.2 11.5 - 16.5 hct 43.3 35 - 55 mcv 86.3 75 - 100 mch 28.2 25 - 35 mchc 32.7 31 - 38 plat 366 100 - 400 Covid test (in house) Reviewed date:10/24/2024 04:54:43 PM Interpretation: Performing Lab: Notes/Report: Result: neg REASON FOR VISIT poss.sinus infection Medications Medication SIG (Take, Route, Frequency, Duration) Notes Start Date End Date Status Zwkqngbd-Qrzjkmpmg-TM 2-30-1 0 MG/5ML 5-10 mL Orally 4 times a day, prn 10/23/2024 Active methylPREDNISolone 4 MG as directed Orally 025 Active Ondansetron 4 MG 1 tablet on the tong ue and allow to dissolve Orally three times a day as needed 07/25/2024 Active Eszopiclone 3 MG 1 tab(s) Orally at bedtime as needed 08/27/2024 Active Qbcqkczac-Putrbldu-DJ 30-2-1 0 MG/5ML 5-10 ml orally 4 times a day, prn 07/25/2024 Active Ondansetron HCl 4 MG 1 tablet Orally thr ee times a day as needed 04/22/2024 Active Ozempic (2 MG/DOSE) 8 MG/3ML 2 mg Subcut aneous once weekly; Duration: 30 days 05/01/2024 Active Ubrelvy 100 MG 1 tablet may take second dose at least 2 hours after first dose as needed Orally Once a day Active Albuterol Sulfate HFA 108 (9 0 Base) MCG/ACT 1 puff as needed Inhalation every 4 hrs, prn 05/22/2024 Active Tamiflu 75 MG 1 capsule Orally [...] Sulfate 200 MG as directed Orally Active Albuterol Sulfate HFA 108 (9 0 Base) MCG/ACT 1 puff as needed Inhalation every 4 hrs Active Montelukast Sodium 10 MG TAKE 1 TABLET B Y MOUTH EVERY EVENING; Duration: 30 Active CeleBREX 200 MG 1 capsule with food Orally Once a day; Duration: 30 day(s) Active Cyclobenzaprine HCl 10 MG 1 tablet at be dtime as needed Orally Once a day; Duration: 30 day(s) Active Vital Signs Weight 220.2 lbs 10/23/2024 Blood pressure systolic 142 mm Hg 10/24/19 25 Blood pressure diastolic 92 mm Hg 025 Heart Rate 69 /min 10/23/2024 Height 64 in 10/23/2024 BMI 37.79 kg/m2 10/23/2024 Encounters Encounter Location Date Provider Diagnosis [facility] [address] [place] [id number] 10/23/2024 Evelyn Lozanosahra Acute URI J06.9 Assessments Encounter Date Diagnosis (ICD Code) Assessment Notes Treatment Notes Treatment Clinical Notes Section Notes 10/23/2024 Acute URI (ICD-10 - J06.9) Plan Of Treatment Medication Medication Name Sig Start Date Stop Date Notes Ohfzjtot-Buunroqyl-QF 2-30-1 0 MG/5ML 5-10 mL Orally 4 times a day, prn 10/23/2024 methylPREDNISolone 4 MG as directed Orally 10/23/2024 Next Appt Details Follow Up: prn, Reason: Progress Notes * MICHELLE NADERDOB: 1 (44 yo F)Acc No.[id number]:10/23/2024 Progress Notes Patient: NADER ANNE Provider: ALEXANDER Simms :1980 A ge:44 Y S ex:Female Date:10/23/2024 Address:[address] [place] [address] [address], [place], [id number] Pcp:Zina Lagos Subjective: * Chief Complaints: * 1 . Poss.sinus infection. * HPI: E NT/respiratory: Pt here for a sinus infection. Pt states this started Monday and keeps on getting worse. Pt would like to discuss Immunizations. 44 year old female presents with c/o sore throat. c/o cough. c/o nasal congestion. c/o post nasal drainage. c/o headache. c/o body aches. * ROS: D ERMATOLOGY: no R sinan. n o H kim. G ASTROENTEROLOGY: no N ausea. n o V omiting. n o D iarrhea.? U ROLOGY: no B lood in urine. n o F requent urination. ? * Medical History: A llergic Rhinitis, Migraine [...] needed Orally Once a day , Taking Albuterol Sulfate HFA 108 (90 Base) MCG/ACT Aerosol Solution 1 puff as needed Inhalation every 4 hrs, prn , Taking Ozempic (2 MG/DOSE) 8 MG/3ML Solution Pen-injector 2 mg Subcutaneous once weekly , Taking Tamiflu 75 MG Capsule 1 capsule Orally Twice a day , Taking Ctgqysgre-Qkzuzxfj-WP 30-2-10 MG/5ML Syrup 5-10 ml orally 4 times a day, prn , Taking Ondansetron 4 MG Tablet Disintegrating 1 tablet on the tongue and allow to dissolve Orally three times a day as needed , Taking Eszopiclone 3 MG Tablet 1 tab(s) Orally at bedtime as needed , Taking Montelukast Sodium 10 MG Tablet TAKE 1 TABLET BY MOUTH EVERY EVENING , Medication List reviewed and reconciled with the patient * Allergies: N .K.D.A. Objective: * Vitals: W t: 220.2, Temp: 97.7, BP: 142/92, HR: 69, O2 Sat: 100% on RA, Nurse: pe, Ht: 64, BMI:37.79. * Examination: E NT/Respiratory: General Appearance: N AD. E ars: a uditory canals normal bilaterally, TM's WNL. N ose : t urbinates red, congested. O ral cavity : e rythema without exudate on pharynx. N mehran : n o cervical lymphadenopathy. H eart : R RR, normal S1 S2, no murmurs. L ungs: c lear to auscultation bilaterally. ? Assessment: * Assessment: 1. Oriana RHODESI - J06.9 (Primary) Plan: * Treatment: Value Reference Range r esults neg * Rosalie Boyle 10/23/2024 11: 27:31 AM EDT > Provider reviewed results while patient in office. ?LAB: Rapid Strep- Inhouse (Collection Date & Time - 10/23/2024)* Value Reference Range s trep test neg * Rosalie Boyle 10/23/2024 11: 15:30 AM EDT > Provider reviewed results while patient in office. ?LAB: CBC Fingerstick (in house) (Collection Date & Time - 10/23/2024)* Value Reference Range w bc 9.4 3.5 - 10 * l ym 23.3 15 - 50 * m id 5.6 2 - 15 * g ran 71.1 35 - 80 * r bc 5.02 3.5 - 5.5 * h gb 14.2 11.5 - 16.5 * h ct 43.3 35 - 55 * m cv 86.3 75 - 100 * m ch 28.2 25 - 35 * m chc 32.7 31 - 38 * p lat 366 100 - 400 * Rosalie Boyle 10/23/2024 11: 14:23 AM EDT > Provider reviewed results while patient in office. ?LAB: Covid test (in house) (Collection Date & Time - 10/23/2024)* Value Reference Range R esult: neg * Rosalie Boyle 10/23/2024 11: 27:55 AM EDT > Provider reviewed results while patient in office. * Procedure Codes: 1 036F [place]CO NON-USER, [address] Flu Test- Nasal Swab, Modifiers: QW , 48628 STREP A ASSAY W/OPTIC, Modifiers: QW , 10252 COVID TEST IN HOUSE, Modifiers: QW , 05951 CBC WITH AUTO DIFF, 09981 CAPILLARY BLOOD DRAW * Follow Up: p rn * Images: Billing Information: * Visit Code: 23440 Office Visit, Est Pt., Level 3. * Procedure Codes: 1036F TOBACCO NON-USER. 77321 Flu Test- Nasal Swab. Modifiers: QW 73506 STREP A ASSAY W/OPTIC. Modifiers: QW 97314 COVID TEST IN HOUSE. Modifiers: QW 07367 CBC WITH AUTO DIFF. 25360 CAPILLARY BLOOD DRAW. * Electronic signature of ALEXANDER Sr on 02/19/2025 at 11:09 AM EDT Sign off status: Pending * Provider: ALEXANDER Simms Date: 0 10/23/2024 Generated for Laura ng/[place]/eTransmitting on: 1 11:09 AM EDT History and Physical Notes * HPI (History of Present Illness) Category Sub-Category Detail Notes Category Not es ENT/respiratory sore throat cough post nasal drainage headache nasal congestion body aches Examination Category Sub-Category Detail Notes Category Not es ENT/Respiratory Oral cavity : erythema without exudate on pharynx Ears: auditory canals norm al bilaterally, TM's WNL Neck : no cervical lymphade nopathy Heart : RRR, normal S1 S2, n o murmurs Lungs: clear to auscultatio n bilaterally General Appearance: NAD Nose : turbinates red, wilfred ested
--- OUTSIDE RECORDS SUMMARY | 2025-01-09 06:30 | XMS_ITS ---
Author Organization [facility] Address [address] [facility] [address] [place] [id number] Care Team Providers Care Tapping Machine Operator Name Role Phone Zina Lagos Primary Care Provider [phone] Evelyn Emanuel Unavailable [phone] Allergies No Known Allergies Results Component Value Reference Range Notes CBC Venipuncture (in house) Reviewed date:01/09/2025 04:54:55 PM Interpretation: Performing Lab: Notes/Report: wbc 8.2 3.5 - 10 lymph 23.2% 15 - 50 mid 6.6% 2 - 15 gran 70.2% 35 - 80 rbc 5.00 3.5 - 5.5 hgb 14.5 11.5 - 16.5 hct 43.6 35 - 55 mcv 87.3 75 - 100 mch 29.1 25 - 35 mchc 33.3 31 - 38 platlet 415 100 - 400 Glycohemoglobin A1c (in hous e) Reviewed date:01/10/2025 09:47:51 AM Interpretation:Normal Performing Lab: Notes/Report: Normal glycohemoglobin 5.4% 5 - 6.5 % P-Vitamin B12 Reviewed date:01/10/2025 09:47:51 AM Interpretation:Normal Performing Lab: Notes/Report: Test performed by [facility] [address] [place] [address] , [address], [place] [address] Artemio Ruiz MD, Communications Scientist CLIA: [id number] Vitamin B12 838 034-9333 pg/mL P-Comprehensive Metabolic Pa joycelyn (CMP) Reviewed date:01/10/2025 09:47:51 AM Interpretation:Normal Performing Lab: Notes/Report: Test performed by [facility] [address] [place] [address] [place] [address] Artemio Ruiz MD, Communications Scientist CLIA: [id number] Sodium 138 135-145 mmol/L Potassium 4.3 3.5-5.3 mmol/L Chloride 100 97-108 mmol/L CO2 27 20-32 mmol/L Glucose 88 65-99 mg/dL BUN 13 6-20 mg/dL Creatinine 0.49 0.50-1.00 mg/dL Calcium 9.6 8.6-10.4 mg/dL eGFR by Creatinine 119 >59 mL/min/1.73m2 Protein 6.9 6.0-8.3 g/dL Albumin 4.5 3.5-5.3 g/dL Alkaline Phosphatase 63 35-121 IU/L ALT (SGPT) 16 <5-47 IU/L AST (SGOT) 14 <5-40 IU/L Bilirubin, Total <0.2 <0.2-1.2 mg/dL A/G Ratio 1.9 1.1-2.5 P-Lipid Panel Reviewed date:01/10/2025 09:47:51 AM Interpretation:Normal Performing Lab: Notes/Report: Test performed by [facility] [address] [place] [address] [place] [address] Artemio Ruiz MD, Communications Scientist CLIA: [id number] Cholesterol 181 <200 mg/dL Triglycerides 93 <150 mg/dL HDL Cholesterol 64 >39 mg/dL Cholesterol / HDL Ratio 2.83 0.00-4.44 Ratio Non-HDL Cholesterol 117 <130 mg/dL LDL Cholesterol (Calculation) 98 <130 mg/dL LDL Cholesterol Levels* Less than 100 mg/dL Optimal 100 to 129 mg/dL Near Optimal/ Above Optimal 130 to 159 mg/dL Borderline High 160 to 189 mg/dL High 190 mg/dL and above Very High * Categories as recommended by the 2004 ATPIII guidelines LDL/HDL Ratio 1.5 <3.3 Ratio LDL Cholesterol Patient History Test Date: 01/18/2024 LDL Results: 148 Units: mg/dL % Change: - Test Date: 01/09/2025 LDL Results: 98 Units: mg/dL % Change: -33% P-TSH reflex to FT4 Reviewed date:01/10/2025 09:47:51 AM Interpretation:Normal Performing Lab: Notes/Report: Test performed by [facility] [address] [place] [address] , [place] [address] Artemio Ruiz MD, Communications Scientist CLIA: [id number] TSH reflex to FT4 1.03 0.43-5.25 mU/L P-Vitamin D 25-Hydroxy Reviewed date:01/10/2025 09:47:51 AM Interpretation:29.2 Performing Lab: Notes/Report: Test performed by [facility] [address] [place], [place] [address] , [place] [id number] Artemio Ruiz MD, Communications Scientist CLIA: [id number] Vitamin D 25-Hydroxy 29.2 30.0-100.0 ng/mL Interpretation of Vitamin D 25 OH: < 20 ng/mL - Deficiency 20 - 29 ng/mL - Insufficiency 30 - 100 ng/mL - Sufficiency > 100 ng/mL - Super-therapeutic- toxicity may occur above this level. Clinical correlation required. REASON FOR VISIT general cpx w/labs Medications Medication SIG (Take, Route, Frequency, Duration) Notes Start Date End Date Status Ozempic (2 MG/DOSE) 8 MG/3ML INJECT 0.75 ML SUBCUATNEOUSLY ONCE WEEKLY; Duration: 30 Active Eszopiclone 3 MG 1 tab(s) Orally at bedtime as needed; Duration: 30 days 12/06/2024 Active Ubrelvy 100 MG 1 tablet may take se cond dose at least 2 hours after first dose as needed Orally Once a day Active Ondansetron 4 MG 1 tablet on the tong ue and allow to dissolve Orally three times a day as needed 07/25/2024 Active DULoxetine HCl 60 MG 1 cap(s) Orally onc e daily Active Ondansetron HCl 4 MG 1 tablet Orally thr ee times a day as needed 04/22/2024 Active Vitamin D3 125 MCG (5000 UT) as directed orally once a day; Duration: 30 day(s) 10/16/2020 Active Cyclobenzaprine HCl 10 MG 1 tablet at be dtime as needed Orally Once a day; Duration: 30 day(s) Active CeleBREX 200 MG 1 capsule with food Orally Once a day; Duration: 30 day(s) Active Hydroxychloroquine Sulfate 200 MG as directed Orally Active Vital Signs Weight 216.4 lbs 01/09/2025 Blood pressure systolic 122 mm Hg 01/10/20 25 Blood pressure diastolic 78 mm Hg 025 Heart Rate 78 /min 01/09/2025 Height 64 in 01/09/2025 BMI 37.14 kg/m2 01/09/2025 Encounters Encounter Location Date Provider Diagnosis [facility] [address] [facility] [address] [place], [place] [id number] 01/09/2025 Evelyn Emanuel Routine physical examination Z00.00 ; Vitamin B12 deficiency E53.8 ; Vitamin D deficiency E55.9 ; IFG (impaired fasting glucose) R73.01 ; Prediabetes R73.03 ; Mixed hyperlipidemia E78.2 and Migraine headache G43.909 Assessments Encounter Date Diagnosis (ICD Code) Assessment Notes Treatment Notes Treatment Clinical Notes Section Notes 01/09/2025 Routine physical examination (ICD-10 - Z00.00) Healthy female, continue routine care. 01/09/2025 Vitamin B12 deficiency (ICD-10 - E53.8) 01/09/2025 Vitamin D deficiency (ICD-10 - E55.9) 01/09/2025 IFG (impaired fasting glucose) (ICD-10 - R73.01) 01/09/2025 Prediabetes (ICD-10 - R73.03) 01/09/2025 Mixed hyperlipidemia (ICD-10 - E78.2) 01/09/2025 Migraine headache (ICD-10 - G43.909) 01/09/2025 Other Plan Of Treatment Treatment Notes Assessment Notes Routine physical examination Healthy fem [place], continue routine care. Next Appt Details Follow Up: via phone to repo rt test results, Reason: Progress Notes * BREANNE MARTINEZJEANETTEDOB: 1 (44 yo F)Acc No.[id number]:01/09/2025 Physical Patient: NADER ANNE Provider: ALEXANDER Simms :1980 A ge:44 Y S ex:Female Date:01/09/2025 Address:[address] [place] [address], [place], [id number] Pcp:Zina Lagos Subjective: * Chief Complaints: * 1 . General cpx w/labs. * HPI: H PI: Patient is here today for c heckup and labs. Pt states she wants to see what shots she should get.. * ROS: D ERMATOLOGY: no R sinan. [...] MG Tablet as directed Orally , Taking Vitamin D3 125 MCG (5000 UT) Capsule as directed orally once a day , Taking DULoxetine HCl 60 MG Capsule Delayed Release Particles 1 cap(s) Orally once daily , Taking Ondansetron HCl 4 MG Tablet 1 tablet Orally three times a day as needed , Taking Ubrelvy 100 MG Tablet 1 tablet may take second dose at least 2 hours after first dose as needed Orally Once a day , Taking Ondansetron 4 MG Tablet Disintegrating 1 tablet on the tongue and allow to dissolve Orally three times a day as needed , Taking Eszopiclone 3 MG Tablet 1 tab(s) Orally at bedtime as needed , Taking Ozempic (2 MG/DOSE) 8 MG/3ML Solution Pen-injector INJECT 0.75 ML SUBCUATNEOUSLY ONCE WEEKLY , Discontinued Albuterol Sulfate HFA 108 (90 Base) MCG/ACT Aerosol Solution 1 puff as needed Inhalation every 4 hrs , Discontinued All Day Allergy 10 MG Tablet TAKE 1 TABLET BY MOUTH EVERY DAY , Discontinued Albuterol Sulfate HFA 108 (90 Base) MCG/ACT Aerosol Solution 1 puff as needed Inhalation every 4 hrs, prn , Discontinued Tamiflu 75 MG Capsule 1 capsule Orally Twice a day , Discontinued Bxkfijjal-Eiheptgx-IC 30-2-10 MG/5ML Syrup 5-10 ml orally 4 times a day, prn , Discontinued Montelukast Sodium 10 MG Tablet TAKE 1 TABLET BY MOUTH EVERY EVENING , Discontinued Ligzoyhx-Bpxrltikw-CH 2-30-10 MG/5ML Syrup 5-10 mL Orally 4 times a day, prn , Discontinued methylPREDNISolone 4 MG Tablet Therapy Pack as directed Orally , Medication List reviewed and reconciled with the patient * Allergies: N .K.D.A. Objective: * Vitals: W t: 216.4, Temp: 98.0, BP: 122/78, HR: 78, Nurse: myranda, Ht: 64, BMI:37.14. * Examination: G eneral Examination: General Appearance: [...] o leg edema. Assessment: * Assessment: 1. R outine physical examination - Z00.00 (Primary) 2 . V itamin B12 deficiency - E53.8 3 . V itamin D deficiency - E55.9 4 . I FG (impaired fasting glucose) - R73.01 5 . P rediabetes - R73.03 6 . Mixed hyperlipidemia - E78.2 7 . M igraine headache - G43.909 ? Plan: * Treatment: 2. V itamin B12 deficiency L AB: P-Vitamin B12 (Collection Date & Time - 01/09/2025 10:49 AM) N ormal Value Reference Range V itamin B12 029 143-8272 - pg/mL * Evelyn Emanuel 01/09/2025 1 1:38:03 AM EDT >room Amarla Whitney 01/10/2025 09:47:44 AM EDT > See phone encounter 3.?Vitamin D deficiency?LAB: P-Vitamin D 25-Hydroxy (Collection Date & Time - 01/09/2025 10:49 AM)? 29.2* Value Reference Range V itamin D 25-Hydroxy 29.2 L 30.0-100.0 - ng/mL * Evelyn Emanuel 01/09/2025 1 1:38:03 AM EDT >room A, Brianne Morel 01/10/2025 09:47:44 AM EDT > See phone encounter 4.?IFG (impaired fasting glucose)?LAB: P-TSH reflex to FT4 (Collection Date & Time - 01/09/2025 10:49 AM)? Normal* Value Reference Range T SH reflex to FT4 1.03 0.43-5.25 - mU/L * Evelyn Emanuel 01/09/2025 1 1:38:03 AM EDT >room A, marla Mariscal Brianne 01/10/2025 09:47:44 AM EDT > See phone encounter ?LAB: CBC Venipuncture (in house) (Collection Date & Time - 01/09/2025)* Value Reference Range w bc 8.2 3.5 - 10 * l ymph 23.2% 15 - 50 * m id 6.6% 2 - 15 * g ran 70.2% 35 - 80 * r bc 5.00 3.5 - 5.5 * h gb 14.5 11.5 - 16.5 * h ct 43.6 35 - 55 * m cv 87.3 75 - 100 * m ch 29.1 25 - 35 * m chc 33.3 31 - 38 * p latlet 415 100 - 400 * Andreia Ashby 01/09/2025 1 2:42:43 PM EDT > ?LAB: Glycohemoglobin A1c (in house) (Collection Date & Time - 01/09/2025)? Normal* Value Reference Range g lycohemoglobin 5.4% 5 - 6.5 % * Andreia Ashby 01/09/2025 1 2:07:59 PM EDT > Brianne Mariscal 01/10/2025 09:47:44 AM EDT > See phone encounter 5.?Mixed hyperlipidemia?LAB: P-Comprehensive Metabolic Panel (CMP) (Collection Date & Time - 01/09/2025 10:49 AM)?Normal* Value Reference Range A /G Ratio 1.9 1.1-2.5 - * A lbumin 4.5 3.5-5.3 - g/dL * A lkaline Phosphatase 63 35-121 - IU/L * A LT (SGPT) 16 <5-47 - IU/L * A ST (SGOT) 14 <5-40 - IU/L * B ilirubin, Total <0.2 <0.2-1.2 - mg/dL * B UN 13 6-20 - mg/dL * C alcium 9.6 8.6-10.4 - mg/dL * C hloride 100 97-108 - mmol/L * C O2 27 20-32 - mmol/L * C reatinine 0.49 L 0.50-1.00 - mg/dL * G lucose 88 65-99 - mg/dL * P otassium 4.3 3.5-5.3 - mmol/L * S odium 138 135-145 - mmol/L * P rotein 6.9 6.0-8.3 - g/dL * e GFR by Creatinine 119 >59 - mL/min/1.73m2 * Evelyn Emanuel 01/09/2025 1 1:38:03 AM EDT >room marla Gastelum Whitney 01/10/2025 09:47:44 AM EDT > See phone encounter ?LAB: P-Lipid Panel (Collection Date & Time - 01/09/2025 10:49 AM)?Normal* Value Reference Range C holesterol / HDL Ratio 2.83 0.00-4.44 - Ratio * C holesterol 181 <200 - mg/dL * H DL Cholesterol 64 >39 - mg/dL * L DL Cholesterol (Calculation) 98 <130 - mg/d L * L DL/HDL Ratio 1.5 <3.3 - Ratio * N on-HDL Cholesterol 117 <130 - mg/dL * T riglycerides 93 <150 - mg/dL * Evelyn Emanuel 01/09/2025 1 1:38:03 AM EDT >room marla Gastelum Whitney 01/10/2025 09:47:44 AM EDT > See phone encounter * Procedure Codes: 8 3036 GLYCATED HEMOGLOBIN TEST, Modifiers: QW , [address] CBC WITH AUTO DIFF, 1036F TOBACCO NON-USER, 3044F HG A1C LEVEL LT 7.0%, 3074F SYST BP LT 130 MM HG, 3078F DIAST BP < 80 MM HG * Follow Up: v ia phone to report test results * Images: Billing Information: * Visit Code: 08057 Preventive Care Est Pt Age 40-64. Modifiers: 51694 Office Visit, Est Pt., Level 3. * Procedure Codes: 58203 GLYCATED HEMOGLOBIN TEST. Modifiers: QW 77211 CBC WITH AUTO DIFF. 1036F TOBACCO NON-USER. 3044F HG A1C LEVEL LT 7.0%. 3074F SYST BP LT 130 MM HG. 3078F DIAST BP < 80 MM HG. * Electronic signature of ALEXANDER Sr on 02/19/2025 at 11:09 AM EDT Sign off status: Pending * Provider: ALEXANDER Simms Date: 0 01/09/2025 Generated for Laura ng/Fajoseg/eTransmitting on: 1 11:09 AM EDT History and Physical Notes * HPI (History of Present Illness) Category Sub-Category Detail Notes Category Not es HPI Patient is here today for checku p and labs. Pt states she wants to see what shots she should get. Examination Category Sub-Category Detail Notes Category Not [...]
--- OUTSIDE RECORDS SUMMARY | 2025-02-19 11:09 | XMS_ITS | Patient Health Record ---
Author Organization [facility] Address [address] [facility] [address] [place] [address] Care Team Providers Care Turf Keeper Name Role Phone Mary Snowden Unavailable [phone] Reason For Referral No Information Social History Social History Additional Details Category Social Info Options Details Miscellaneous: Caffeine: CAFFEINE USE: 1 Plan Of Treatment No Information Medical (General) History Medical History History ICD Code Endometriosis A Routine ABORTIONS: 1 MENSTR FLOW: Heavy LOESTRIN FE 05/13 TABLET QSYMIA 3.75-23 MG [id number] (PHENTERMINE -TOPIRAMATE) QSYMIA 7.5-46 MG ORAL CAPSULE EXTENDED R ELEASE 24 HOUR
--- OUTSIDE RECORDS SUMMARY | 2025-02-19 11:09 | XMS_ITS | Clinical Summary ---
[facility] Organization [facility] Address [address] [place] [address] Care Team Providers Care Shipping Hand Name Role Phone Elder Carroll MD Primary Care Provider [phone] Allergies Active Allergy Reactions Criticality Noted Date Comments Adhesive Tape Other (See Comments) 09/26/2017 BLISTERS AND REDNESS Medications Montelukast Sodium (SINGULAIR PO) Take 10 mg by mouth Every Night. Active ibuprofen (ADVIL,MOTRIN) 600 MG tablet Take 1 tablet by mouth Every 6 (Six) Hours. 35 tablet 09/30/2017 9:14 AM EDT 09/30/2017 Active HYDROcodone-elizabeth taminophen (NORCO) 10-325 MG per tablet Take 1-2 tablets by mouth Every 4 (Four) Hours As Needed for Severe Pain. 24 tablet 09/30/2017 9:14 AM EDT 09/30/2017 Active oxyCODONE-aceta minophen (PERCOCET) 5-325 MG per tablet Take 1-2 tablets by mouth Every 4 (Four) Hours As Needed for pain. 30 tablet 10/04/2017 2:45 PM EDT 10/04/2017 Active oxybutynin XL (DITROPAN-XL) 10 MG 24 hr tablet Take 1 tablet by mouth Daily. 30 tablet 1 10/05/2017 Active Active Problems Problem Noted Date Diagnosed Date Postoperative pain 10/03/2017 Pelvic pain in female 09/28/2017 Family History Medical History Relation Name Comments Cancer Mother Relation Name Status Comments Mother Social History Tobacco Use Types Packs/Day Years Used Date Smoking Tobacco: Never Smokeless Tobacco: Never Alcohol Use Standard Drinks/Week Comments No 0 (1 standard drink = 0.6 oz pur e alcohol) Abuse Screen Answer Date Recorded Unsafe at Home or Work/School Not on file Feels Threatened by Someone? Not on file 12/2022 Does Anyone Keep You from Co ntacting Others or Doint Things Outside the Home? Not on file 01/30/2023 Physical Sign of Abuse Present Not on file 1 Housing Stability Answer Date Recorded Current Living Arrangements Not on file 12/2022 Potentially Unsafe Housing Conditions Not on lori e 01/30/2023 Family and Community Support Answer Everette e Recorded Help with Day-to-Day Activities Not on file 01/30/2023 Lonely or Isolated Not on file 01/30/2023 Employment Answer Date Recorded Do you want help finding or keeping work or a kayley b? Not on file 01/30/2023 Disabilities Answer Date Recorded Concentrating, Remembering, or Making Decisions Difficulty Not on file 01/30/2023 Doing Errands Independently Difficulty Not on fi le 01/30/2023 Education Answer Date Recorded Help with school or training? Not on file Preferred Language Not on file 01/30/2023 Comments No Sex and Gender Information Value Date Recorded Sex Assigned at Not on file Legal Sex Female 12:00 PM EDT Gender Identity Not on file Sexual Orientation Not on file Last Filed Vital Signs Vital Sign Reading Time Taken Comments Blood Pressure 116/61 10/04/2017 11:42 AM EDT Pulse 68 10/04/2017 11:42 AM EDT Temperature 36.9 C (98.5 F) 10/04/2017 11:42 AM EDT Respiratory Rate 18 10/04/2017 11:42 AM EDT Oxygen Saturation 97% 10/04/2017 11:42 AM EDT Inhaled Oxygen Concentration - - Weight 98 kg (216 lb 0.8 oz) 10/03/2017 5:05 PM EDT Height 162.6 cm (5' 4.02 ) 10/03/2017 5:05 PM ED T Body Mass Index 37.07 10/03/2017 5:05 PM EDT Plan of Treatment Health Maintenance Due Date Last Done Comments Annual Gynecologic Pelvic and Breast Exam 1980 ANNUAL PHYSICAL 12/29/2016 HEPATITIS C SCREENING 12/29/2016 MAMMOGRAM 10/19/2023 10/18/2021, 09/23, 10/15/2020, Additional history exists INFLUENZA VACCINE 11/22/2024 02/17/2023, , 02/06/2020 TDAP/TD VACCINES (2 - Td or Tdap) 12/16/2031 12/15/2021 Pneumococcal Vaccine 0-49 Aged Out No longer eligible based on patient's age to complete this topic Procedures Procedure Name Priority Date/Time Associated Diagnosis Comments MAMMO OUTSIDE FILMS Routine 10/18/2021 1 2:00 AM EDT H/O mammogram from Last 3 Months or Most Recently Relevant to Health Maintenance Results * MAMMO Outside Films (10/18/2021 12:00 AM EDT) Narrative SYSTEMGENERATED, DOCUMENTATION - 10/11/2023 9:12 AM EDT This procedure was auto-finalized with no dictation required. us Bautista Lagos MD IMG MAMMOGRAPHY ORDERA BLES Final Result from Last 3 Months or Most Recently Relevant to Health Maintenance Insurance PPO Advance Directives * Full Code (Latest Code Status on File) Date Activated Date Inactivated Comments 10/04/2017 12:17 PM 10/04/2017 5:37 PM * Full Code Date Activated Date Inactivated Comments 09/29/2017 9:34 AM 09/30/2017 4:17 PM Healthcare Agents on File Name Relationship Healthcare Agent Relationshi p Communication Ruben Martinez Spouse Health Care Surrogate Care Teams Shipping Hand Relationship Specialty Start Date End Date Elder Carroll MD [address] [facility] [address] [facility] [address] [place] [address] PCP - General Family Medicine 12/29/16
--- NOTE | 2025-02-19 11:10 | XR_ITS ---
FINAL REPORT CLINICAL HISTORY: INJURY LT SHOULDER - popped out of socket this Monday COMPARISON: None FINDINGS: LEFT SHOULDER 3 views of the left shoulder were obtained. There is no acute fracture or dislocation. There are mild hypertrophic changes of the acromioclavicular joint. Soft tissues are unremarkable. IMPRESSION: Mild degenerative changes without acute bony abnormality. Reviewed, Interpreted and Dictated by Neo Blanco MD Transcribed by Latonya Rivera Authenticated and [facility]
--- OUTSIDE RECORDS SUMMARY | 2025-02-19 11:10 | XMS_ITS | Patient Health Record ---
[facility] [address] [place] [id number] Care Team Providers Care Rn Transition Name Role Phone Zina Lagos Primary Care Provider Gail Baltazar Unavailable [phone] Evelyn Emanuel Unavailable [phone] Allergies No Known Allergies Results Component Value Reference Range Notes Influenza Screen (in house) Reviewed date:04/18/2024 11:38:32 AM Interpretation: Performing Lab: Notes/Report: results Neg Influenza Screen (in house) Reviewed date:10/24/2024 04:54:43 [...] PM Interpretation: Performing Lab: Notes/Report: Result: neg CBC Venipuncture (in house) Reviewed date:01/09/2025 04:54:55 [...] Interpretation:Normal Performing Lab: Notes/Report: Test performed by [facility] [address] [place] [address] , [address], [place] [address] Artemio Ruiz MD, [employer] CLIA: [id number] Vitamin B12 003 880-7961 pg/mL P-Comprehensive Metabolic Pa joycelyn (CMP) Reviewed date:01/10/2025 09:47:51 AM Interpretation:Normal Performing Lab: Notes/Report: Test performed by [facility] [address] [place] [address] , [address], [place] [address] Artemio Ruiz MD, [employer] CLIA: [id number] Sodium 138 135-145 mmol/L Potassium 4.3 3.5-5.3 [...] Interpretation:Normal Performing Lab: Notes/Report: Test performed by [facility] [address] [place] , [place] [address] Artemio Ruiz MD, W[employer] CLIA: [id number] Cholesterol 181 <200 mg/dL Triglycerides 93 <150 [...] Interpretation:Normal Performing Lab: Notes/Report: Test performed by [facility] [address] [place] [address] , [place] [address] Artemio Ruiz MD, [employer] CLIA: [id number] TSH reflex to FT4 1.03 0.43-5.25 mU/L P-Vitamin D 25-Hydroxy Reviewed date:01/10/2025 09:47:51 AM Interpretation:29.2 Performing Lab: Notes/Report: Test performed by [facility] [address] [place] [address] , [place] [address] Artemio Ruiz MD, [employer] CLIA: [id number] Vitamin D 25-Hydroxy 29.2 30.0-100.0 ng/mL Interpretation of Vitamin D 25 OH: < 20 ng/mL - Deficiency 20 - 29 ng/mL - Insufficiency 30 - 100 ng/mL - Sufficiency > 100 ng/mL - Super-therapeutic- toxicity may occur above this level. Clinical correlation required. CBC Fingerstick (in house) Reviewed date:05/22/2024 11:44:34 [...] Interpretation:Negative Performing Lab: Notes/Report: Negative Result: neg Influenza Screen (in house) Reviewed date:05/22/2024 11:47:01 AM Interpretation:Negative Performing Lab: Notes/Report: Negative results neg Influenza Screen (in house) Reviewed date:07/25/2024 03:15:36 PM Interpretation: Performing Lab: Notes/Report: results Pos A Covid test (in house) Reviewed date:07/25/2024 03:15:36 PM Interpretation: Performing Lab: Notes/Report: Result: Neg Medications Medication SIG (Take, Route, Frequency, Duration) Notes Start Date End Date Status DULoxetine HCl 60 MG 1 cap(s) Orally onc e daily Active Ondansetron HCl 4 MG 1 tablet Orally thr ee times a day as needed 04/22/2024 Active Hydroxychloroquine Sulfate 200 MG as directed Orally Active Vitamin D3 125 MCG (5000 UT) as directed orally once a day; Duration: 30 day(s) 10/16/2020 Active Ubrelvy 100 MG 1 tablet may take second dose at least 2 hours after first dose as needed Orally Once a day; Duration: 30 days Active Ondansetron 4 MG 1 tablet on the tong ue and allow to dissolve Orally three times a day as needed 07/25/2024 Active Eszopiclone 3 MG 1 tab(s) Orally at bedtime as needed; Duration: 30 days 01/09/2025 Active CeleBREX 200 MG 1 capsule with food Orally Once a day; Duration: 30 day(s) Active Cyclobenzaprine HCl 10 MG 1 tablet at be dtime as needed Orally Once a day; Duration: 30 day(s) Active Ozempic (2 MG/DOSE) 8 MG/3ML 0.75 mL Sub cutaneous once a week; Duration: 30 days Active Immunizations Vaccine Route Administration Date Status Comme nts COVID 19 Pfizer Unknown 07/01/2020 Administered COVID 19 Pfizer Unknown 07/29/2020 Administered COVID 19 Pfizer Unknown 03/23/2021 Administered Fluzone Quad (6months&older) IM Intramuscular 02/06/2020 Administered Hepatitis A (adult) IM Intramuscular 12/15/2021 Administer ed Tetanus Tdap-Adacel (over 7yrs) IM Intramuscular 12/15/2021 Administered Problems Problem Type SNOMED Code ICD Code Onset Dates Problem Status W/U Status Risk Notes Problem Vitamin D deficiency (57074340) Vitamin D deficiency (E55.9) Active confirmed Problem Abnormal mammogram (734021711) Abnormal mammogram (R92.8) Active confirmed Problem Mixed hyperlipidemia (749751719) Mixed hyperlipidemia (E78.2) Active confirmed Problem Primary insomnia (6958713) Primary insomnia (F51.01) Active confirmed Problem Weakness (15405351) Weakness (R53.1) Active confirmed Problem Dysfunctional uterine bleeding (90006234206205) Dysfunctional uterine bleeding (N93.8) Active confirmed Problem Obesity (899256238) Obesity (BMI 30-39.9) (E66.9) Active confirmed Problem Insomnia (557662996) Insomnia, unspecified type (G47.00) Active confirmed Problem Vocal cord paralysis (752301185) Vocal cord paralysis (J38.00) Active confirmed Problem Migraine variant with headache (disorder) (246605322) Migraine headache (G43.909) Active confirmed Problem Family history of breast cancer (829142984) Family history of breast cancer (Z80.3) Active confirmed Problem Impaired fasting glycaemia (053968479) IFG (impaired fasting glucose) (R73.01) Active confirmed Problem Anxiety about health (686898387) Anxiety about health (F41.8) Active confirmed Problem Chest pain (46949524) Discomfort in chest (R07.89) Active confirmed Problem Refractory migraine (127974605) Intractable migraine without status migrainosus, unspecified migraine type (G43.919) Active confirmed Problem Seasonal allergic rhinitis (066794146) Seasonal allergic rhinitis, unspecified trigger (J30.2) Active confirmed Problem Tracheitis (44737820) Tracheitis (J04.10) Active confirmed Problem Dyspnea (830955076) Other form of dyspnea (R06.09) Active confirmed Problem Sleep apnea (57678982) Sleep-disordered breathing (G47.30) Active confirmed Problem 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 Vital Signs Heart Rate 85 /min 02/19/2025 Blood pressure diastolic 70 mm Hg 02/19/2025 Height 64 in 02/19/2025 Blood pressure systolic 130 mm Hg 02/19/2025 Weight 224 lbs 02/19/2025 BMI 38.45 kg/m2 02/19/2025 Encounters Encounter Location Date Provider Diagnosis [facility] [address] [place], [place] [id number] 04/18/2024 Baltazar Pandora Influenza J11.1 [facility] [address] [place], [place] [id number] 05/22/2024 Evelyn Crowdy Bronchitis J40 and Polyarthralgia M25.50 [facility] [address] [place] [id number] 07/25/2024 Evelynromel Emanuel Influenza A J10.1 [facility] [address] [place], [place] [id number] 10/23/2024 Evelyn Adelfo Acute URI J06.9 [facility] [address] [place] [id number] 01/09/2025 Evelyn Blakedy Routine physical examination Z00.00 ; Vitamin B12 deficiency E53.8 ; Vitamin D deficiency E55.9 ; IFG (impaired fasting glucose) R73.01 ; Prediabetes R73.03 ; Mixed hyperlipidemia E78.2 and Migraine headache G43.909 [facility] [address] [place] [id number] 02/19/2025 Evelyn Crowdy Injury of left shoul deandre, initial encounter S49.92XA [facility] [address] [place] [id number] 02/22/2024 Evelyn Crowdy [facility] [address] [place] [id number] 03/08/2024 R Avel Demond [facility] [address] [place] [id number] 04/01/2024 Evelyn Crowdy [facility] [address] [place] [id number] 04/22/2024 Baltazar Pandora [facility] [address] [place] [id number] 05/01/2024 Baltazar Pandora Insomnia, unspecifie d type G47.00 [facility] [address] [place] [id number] 05/02/2024 R Avel Demond Insomnia, unspecifie d type G47.00 [facility] [address] [place] [id number] 05/16/2024 R Avel Demond [facility] [address] [place] [id number] 07/09/2024 R Avel Demond [facility] [address] [place] [id number] 07/10/2024 R Avel Demond [facility] [address] [place] [id number] 07/25/2024 R Avel Demond Insomnia, unspecifie d type G47.00 [facility] [address] [place] [id number] 08/27/2024 R Avel Demond [facility] [address] [place] [id number] 10/24/2024 R Avel Demond [facility] [address] [place] [id number] 11/05/2024 R Avel Demond Screening for breast cancer Z12.39 [facility] [address] [place] [id number] 11/06/2024 R Avel Demond [facility] [address] [place] [id number] 12/05/2024 R Avel Demond [facility] [address] [place] [id number] 12/05/2024 R Avel Demond [facility] [address] [place] [id number] 12/09/2024 R Avel Demond [facility] [address] [place] [id number] 12/24/2024 R Avel Demond [facility] [address] [place] [id number] 01/09/2025 R Avel Demond [facility] [address] [place] [id number] 01/10/2025 Evelyn Emanuel [facility] [address] [place], [place] [id number] 02/05/2025 Zina Lagos [facility] [address] [place], [place] [id number] 04/30/2024 R Avel Lagos Migraine headache G43.909 [facility] [address] [facility] [address] [place], [place] [id number] 08/28/2024 R Avel Meltont [facility] [address] [place], [place] [id number] 08/28/2024 R Avel Lagos Assessments Encounter Date Diagnosis (ICD Code) Assessment Notes Treatment Notes Treatment Clinical Notes Section Notes 04/18/2024 Influenza (ICD-10 - J11.1) 04/30/2024 Migraine headache (ICD-10 - G43.909) 05/01/2024 Insomnia, unspecified type (ICD-10 - G47.00) 05/02/2024 Insomnia, unspecified type (ICD-10 - G47.00) 05/22/2024 Polyarthralgia (ICD-10 - M25.50) Steroids should help with this as well. 05/22/2024 Bronchitis (ICD-10 - J40) 07/25/2024 Influenza A (ICD-10 - J10.1) Rest, fluids, tylenol or motrin for fevers. Home until fever free for 24-48 hours without the use of medication. 07/25/2024 Insomnia, unspecified type (ICD-10 - G47.00) 10/23/2024 Acute URI (ICD-10 - J06.9) 11/05/2024 Screening for breast cancer (ICD-10 - Z12.39) 01/09/2025 Vitamin B12 deficiency (ICD-10 - E53.8) 01/09/2025 Routine physical examination (ICD-10 - Z00.00) Healthy female, continue routine care. 02/19/2025 Injury of left shoulder, initial encounter (ICD-10 - S49.92XA) 01/09/2025 Vitamin D deficiency (ICD-10 - E55.9) 01/09/2025 IFG (impaired fasting glucose) (ICD-10 - R73.01) 01/09/2025 Prediabetes (ICD-10 - R73.03) 01/09/2025 Mixed hyperlipidemia (ICD-10 - E78.2) 01/09/2025 Migraine headache (ICD-10 - G43.909) 01/09/2025 Other Plan Of Treatment Pending Test Test Name Order Date X ray : Shoulder, left 02/19/2025 Mammogram 11/05/2024 Mammogram, Bilateral Diagnostic 09/27/19 Insurance Providers Payer Name Payer Address Payer Phone Subscriber Number Group Number Insured Name Patient Relationship to Insured Coverage Start Date Coverage End Date [facility] [employer] [address] [place] [address] [id number] NADER MARTINEZ Self - patient is the insured Medications Administered Medication Instructions Date of Administration Dosage Notes Depo- Medrol 40 mg/ml 11/29/2012 Depo- Medrol 40 mg/ml 10/13/2020 1.5 mL Dexamethasone 10/15/2014 1 mL Dexamethasone 07/20/2017 1 mL Dexamethasone 05/01/2018 1 mL Dexamethasone 03/16/2021 1 mL Dexamethasone 12/15/2021 1 mL phenergan 25 mg/ml 04/09/2019 1 mL TORADOL INJECTION 04/09/2019 60 mg Medical (General) History Medical History History ICD Code Allergic Rhinitis Migraine Headache RT Shoulder Labral and Rotator Cuff Tear LT Shoulder Dislocation Insomnia Fibromyalgia Mixed Connective Tissue Disease Surgical History Surgery Date(Month/Year) LT Closed Arm Reduction 1993 RT Knee Arthroscope 1998 RT Shoulder Arthroscope 2002 Tonsillectomy 2007 Hysterectomy 09/2017
== END 2025-02-19 23:59 | disposition home or self-care (01) ==
LOC: RAD 11:07
PROVIDERS: PCP Physician Assistant; Visit Provider Physician Assistant
DX: M19.012 Primary osteoarthritis, left shoulder (principal); S49.92XA Unspecified injury of left shoulder and upper arm, initial encounter
CPT/HCPCS: 73030

== ENCOUNTER 2025-04-07 15:09 | Outpatient (CLI) | payer BC, SELFPAY ==
--- NOTE | 2025-04-07 15:12 | XR_ITS ---
FINAL REPORT TECHNIQUE: Left foot 3 views CLINICAL HISTORY: PAIN OF HEEL COMPARISON: None FINDINGS: LEFT FOOT: 3 images of the left foot were obtained. There is no evidence of fracture or dislocation. The joint spaces are intact. There is no soft tissue abnormality identified. A small plantar calcaneal spur is present. IMPRESSION: Small plantar calcaneal spur, with no acute bony abnormality. Reviewed, Interpreted and Dictated by Neo Blanco MD Transcribed by Oriana Summers Authenticated and [facility]
== END 2025-04-07 23:59 ==
LOC: RAD 15:10
PROVIDERS: PCP Physician Assistant; Visit Provider Family Medicine
DX: M77.32 Calcaneal spur, left foot (principal)
CPT/HCPCS: 73630